=== PATIENT | male | born 1960 | race Caucasian/White ===

== ENCOUNTER 2016-07-15 10:34 | Emergency (ER) | payer MEDICAID ==
--- NOTE | 2016-07-15 10:57 | EDPHY ---
H & P Smoking Status: Never smoked Time Seen by Provider: 07/15/16 10:53 HPI/ROS: CHIEF COMPLAINT: Depression and suicidal ideation HISTORY OF PRESENT ILLNESS: History of bipolar, presents with ex-, suicidal ideation with worsening depression. Patient has a long history of depression and has had discussions with Dr. David Ribeiro about ECT if he does not get better. Worsening depression symptoms which are severe with a plan to put a plastic bag over his head or overdose on medications. Denies actual self-harm or overdose today. REVIEW OF SYSTEMS: Eye: no change in vision ENT: Recent hoarse voice. Cardiac: no chest pain or syncope Pulmonary: no cough or SOB Abdomen: no vomiting, diarrhea, abdominal pain Musculoskeletal: no back pain Skin: no rash Neuro: no headache Constitutional: no fever : no urinary symptoms A comprehensive 10 point review of systems is otherwise negative aside from elements mentioned in the history of present illness. PAST MEDICAL HISTORY: Bipolar disorder and severe depression Social history: No tobacco alcohol or drugs. General Appearance: Alert and conversant, cooperative. Eyes: No scleral icterus. ENT, Mouth: Normal mucous membranes. Respiratory: Normal respiratory effort, breath sounds equal, lungs are clear to auscultation. Cardiovascular: Regular rate and rhythm. Gastrointestinal: Abdomen is soft and non tender. Neurological: Alert and oriented x3. Normally conversant. Face symmetric, normal movement and sensation in all extremities. Skin: Warm and dry, no rashes. Musculoskeletal: No peripheral edema and no joint swelling. Psychiatric: Severe depression is noted in HPI with suicidal ideation and plan. Emergency Department course/MDM: Patient is placed on a mental health hold by myself at 11:00 a.m. for depression and increasing suicidal ideation with a plan. 1545: Signed out to Dr. Porras with psychiatric evaluation still in progress. ( Esau Porter) Constitutional: Initial Vital Signs Temperature (C) 36.4 C 07/15/16 10:50 Heart Rate 76 07/15/16 10:50 Respiratory Rate 16 07/15/16 10:50 Blood Pressure 133/79 H 07/15/16 10:50 O2 Sat (%) 95 07/15/16 10:50 O2 Delivery Mode Room Air Allergies/Adverse Reactions: No Known Allergies Allergy (Unverified 01/05/16 17:44) Home Medications: Medication Instructions Recorded QUEtiapine FUMARATE [Seroquel 50 100 mg PO HS 01/05/16 mg (*)] Sertraline HCl [Zoloft 100mg (*)] 100 mg PO DAILY 01/05/16 buPROPion XL [Wellbutrin Xl] 450 mg PO DAILY 01/05/16 clonazePAM [Klonopin (*)] 0.5 mg PO HS 01/05/16 Brexpiprazole [Rexulti 2 MG (*)] 2 mg PO DAILY 07/15/16 Medical Decision Making - Diagnostics EKG Interpretation: 12-lead EKG interpreted by me; official reading is in trace master. My interpretation is sinus rhythm, some rate 65, otherwise normal. (Esau Porter) ED Course/Re-evaluation: I assumed care of the patient at 4:00 p.m. pending psychiatric evaluation and placement. Update at 6:00 p.m.: I am informed that the psychiatric evaluation team is evaluating placement options. Update at 10:00 p.m. the patient has been accepted for psychiatric admission by Dr. Rg at [facility]. I have filled out the [facility] transfer form. (Alber Porras) Differential Diagnosis: Differential diagnosis considered for depression including functional and major depression, situational depression, medication side effect, drugs and alcohol abuse. (Esau Porter) - Data Points Laboratory Results: Laboratory Results 07/15/16 11:30 07/15/16 11:30 07/15/16 07/15/16 07/15/16 11:30 11:30 11:30 WBC 8.75 10^3/uL 10^3/uL (3.80-9.50) RBC 4.98 10^6/uL 10^6/uL (4.40-6.38) Hgb 15.5 g/dL g/dL (13.7-17.5) Hct 45.4 % % (40.0-51.0) MCV 91.2 fL fL (81.5-99.8) MCH 31.1 pg pg (27.9-34.1) MCHC 34.1 g/dL g/dL (32.4-36.7) RDW 13.3 % % (11.5-15.2) Plt Count 285 10^3/uL 10^3/uL (150-400) MPV 8.7 fL fL (8.7-11.7) Neut % (Auto) 73.1 % % (39.3-74.2) Lymph % (Auto) 16.6 % % (15.0-45.0) [place] % (Auto) 8.3 % % (4.5-13.0) Eos % (Auto) 0.9 % % (0.6-7.6) Baso % (Auto) 0.5 % % (0.3-1.7) Nucleat RBC Rel Count 0.0 % % (0.0-0.2) Absolute Neuts (auto) 6.40 10^3/uL 10^3/uL (1.70-6.50) Absolute Lymphs (auto) 1.45 10^3/uL 10^3/uL (1.00-3.00) Absolute Monos (auto) 0.73 10^3/uL 10^3/uL (0.30-0.80) Absolute Eos (auto) 0.08 10^3/uL 10^3/uL (0.03-0.40) Absolute Basos (auto) 0.04 10^3/uL 10^3/uL (0.02-0.10) Absolute Nucleated RBC 0.00 10^3/uL 10^3/uL (0-0.01) Immature Gran % 0.6 % % (0.0-1.1) Immature Gran # 0.05 10^3/uL 10^3/uL (0.00-0.10) Sodium 141 mEq/L mEq/L (134-144) Potassium 4.7 mEq/L mEq/L (3.5-5.2) Chloride 106 mEq/L mEq/L (97-110) Carbon Dioxide 26 mEq/l mEq/l (22-31) Anion Gap 9 mEq/L mEq/L (8-16) BUN 25 mg/dL H mg/dL (7-23) Creatinine 1.0 mg/dL mg/dL (0.7-1.3) Estimated GFR > 60 Glucose 107 mg/dL H mg/dL (70-100) Calcium 9.9 mg/dL mg/dL (8.5-10.4) TSH 1.670 uIU/mL uIU/mL (0.465-4.680) Salicylates < 1.0 mg/dL L mg/dL (2.0-20.0) Urine Opiates Screen NEGATIVE (NEGATIVE) Acetaminophen < 10 mcg/mL L mcg/mL (10.0-30.0) Urine Barbiturates NEGATIVE (NEGATIVE) Ur Phencyclidine Scrn NEGATIVE (NEGATIVE) Ur Amphetamine Screen NEGATIVE (NEGATIVE) U Benzodiazepines Scrn NEGATIVE (NEGATIVE) [place] < 0.2 mEq/L L mEq/L (0.6-1.2) Urine Cocaine Screen NEGATIVE (NEGATIVE) U Marijuana (THC) Screen NEGATIVE (NEGATIVE) Ethyl Alcohol < 10 mg/dL mg/dL (0-10) Departure - Departure Disposition: Other Psych, Not Pa Clinical Impression: Suicidal ideation, Severe major depression Condition: Fair Referrals: NONE *PRIMARY CARE P,. [Primary Care Provider] - As per Instructions
[2016-07-15 11:58] LABS: % IMMATURE GRANULYOCYTES 0.6 % (0.0-1.1); ABSOLUTE IMMATURE GRANULOCYTES 0.05 10^3/uL (0.00-0.10); ADD DIFF? NO; ADD MORPH? NO; ADD SCAN? NO; ATYPICAL LYMPHOCYTE FLAG 0 (0-99); FRAGMENT RBC FLAG 0 (0-99); HEMATOCRIT 45.4 % (40.0-51.0); HEMOGLOBIN 15.5 g/dL (13.7-17.5); LEFT SHIFT FLG 0 (0-99); LIPEMIA HEMOLYSIS FLAG 90 (0-99); MEAN CELL HEMOGLOBIN 31.1 pg (27.9-34.1); MEAN CELL HEMOGLOBIN CONCENTR. 34.1 g/dL (32.4-36.7); MEAN CELL VOLUME 91.2 fL (81.5-99.8); MEAN PLATELET VOLUME 8.7 fL (8.7-11.7); PLATELET CLUMPS FLAG 0 (0-99); PLATELET COUNT 285 10^3/uL (150-400); RED BLOOD CELL COUNT 4.98 10^6/uL (4.40-6.38); RED CELL DISTRIBUTION WIDTH 13.3 % (11.5-15.2)
--- NOTE | 2016-07-15 12:07 | CPEKG ---
Heart Rate: 65 RR Interval: 923 P-R Interval: 148 QRSD Interval: 102 QT Interval: 384 QTC Interval: 400 P [place]: 57 QRS [place]: 53 T Wave [place]: 41 EKG Severity - NORMAL ECG - EKG Impression: SINUS RHYTHM Electronically Signed By: Esau Porter 15-Jul-2016 12:13:58
[2016-07-15 12:22] LABS: ANION GAP 9 mEq/L (8-16); CALCIUM 9.9 mg/dL (8.5-10.4); CARBON DIOXIDE 26 mEq/l (22-31); CHLORIDE 106 mEq/L (97-110); ETHANOL SERUM < 10 mg/dL (0-10); GLOMERULAR FILTRATION RATE > 60; GLUCOSE 107 mg/dL (70-100); POTASSIUM 4.7 mEq/L (3.5-5.2); SALICYLATE < 1.0 mg/dL (2.0-20.0); SODIUM 141 mEq/L (134-144)
[2016-07-15 12:27] LABS: LITHIUM < 0.2 mEq/L (0.6-1.2)
[2016-07-15 21:58] VITALS: RESP 16; TEMP 97.9; O2SAT 96
[2016-07-15] MEDS ORDERED: QUEtiapine FUMARATE 50 MG TAB PO ONE (23:17)
[2016-07-15] MEDS ORDERED: clonazePAM 0.5 MG TAB PO ONE (23:17)
[2016-07-15] MEDS ORDERED: QUEtiapine FUMARATE 100 MG TAB ONE (23:23)
[2016-07-16] VITALS: BP 130/78; PULSE 56
== END 2016-07-15 23:45 ==
DX: R45.851 Suicidal ideations (principal); F32.9 Major depressive disorder, single episode, unspecified
CPT/HCPCS: 80305; G0480

== ENCOUNTER 2016-12-31 13:53 | Inpatient (IN) | payer MEDICAID ==
--- NOTE | 2016-01-16 10:17 | BGECT ---
[f rep st] OUTPATIENT ECT Amended report OUTPATIENT ELECTROCONVULSIVE THERAPY (ECT) EVALUATION DATE OF SERVICE: 01/15/[address] OF EVALUATION: [facility]. PRESENT FOR EVALUATION: The patient and his . TIME SPENT: 120 minutes. SOURCES OF INFORMATION: Clinical notes dated 12/24/[address] Lauro Fraga and ER evaluation from [facility] Emergency Department dated 01/05/2016. Personal interview and interview of patient's . CHIEF COMPLAINT: "I am no able to function". HISTORY OF PRESENT ILLNESS: The patient is a 55-year-old male with a history of treatment-resistant bipolar depression. He is referred by his outpatient psychiatrist, Dr. Lauro Fraga, due to lack of responsiveness to numerous medication interventions. He describes an almost life-long history of depressive symptoms, first beginning at age 11 to 13. At that time he states that he would feel sad and depressed most days and he can remember not understanding why. He states that he would cry frequently, especially at night and feel hopeless. He denies any specific losses or abuse or other factors contributing to this. He stated that he "just always felt sad". 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 He states that he was unhappy at his job and his partner at the time encouraged him to seek psychological help as she was a psychology clinical research director. He states that he did the psychotherapy for about 2 years and noted that he believes it was helpful. The patient first began medications about 20 years ago when he was given Prozac. He states that this was "quickly helpful within days". He states that his mood improved, though he felt accelerated and "buzzy". He then discontinued it and noted his mood to decline. He was then started on Paxil and noted again improvement and none of the over activation. He took this for about 2 years and then discontinued it due to the objection of his partner at that time who essentially did not believe in psychotropic medications. He states that his mood then declined significantly and he eventually went back on Paxil which he took consistently for 8 years. He states that this worked quite well but then quit working without other external factors and he stopped it. He states that he remained off medications for some time but got significantly worse and then saw a psychiatric nurse practitioner. He was then placed on several antidepressants including Celexa, Wellbutrin and Effexor which were ineffective. Seroquel, Abilify, Risperdal, trazodone and clonazepam were added without benefit. He was then tried on Zoloft again which was more helpful this time but precipitated a manic episode. He states that his sleep decreased and his mood became labile and erratic. He stated that he began to act "out of character" with impulsive spending and other behaviors. He begin starting home projects and not completing them and starting business ventures that were unsuccessful that he also did not finish. His states that he was more irritable and hostile, especially towards her and that this was a significant injury to their relationship. These symptoms merged when he restarted the Zoloft but also were coincident with his beginning marijuana use. He states that he was smoking on a daily basis at the time and did not believe it was related to his mood problems. He was eventually stared on [place] which he states was effective but caused him to feel blunted. He then had trials of Latuda in addition to the [place] and Abilify. The Zoloft was continued as he believes that has been the most beneficial medication for him over time. Recently Wellbutrin was added at 150 mg of the XL preparation and he states he has not noticed much benefit from that. He has taken Seroquel consistently over time for sleep at 100 mg and did have one brief trial of higher dose when he was working with the nurse practitioner, though he states he felt too sedated during the day. Recently Dr. Fraga engaged in trials of Latuda which was ineffective and he had several treatments with ketamine nasal spray over the last three weeks. The patient states that these definitely changed his feeling , stating at the time that he used it but it did not last. He states he typically took it at night and then slept well but in the morning felt depressed. He has recently changed to Rexulti and the Latuda was discontinued. The patient states that since October of this year his mood has been significantly worse and that he associates this in time with stopping Abilify and Alderton. His current symptoms of depression include depressed mood, poor energy and motivation, poor attention to concentration, inability to focus, some word- finding errors and other difficulties with recall including remembering how to perform work tasks that he is familiar with. He states that he has initial and middle insomnias and feels chronically tired. He reports anhedonia with lack of participation in most activities. He states he usually likes to snowboard with his children and enjoys rock climbing, going to the gym. He states that recently he has not done these activities and even drove to the gym and sat in the parking lot but did not go in. He states that his motivation and volition are poor and that he feels "aimless". He states that he has been very indecisive and often will sit in his car for hours trying to decide what he needs to do. He feels helpless and hopeless and has had increasingly frequent impressing thoughts of suicide. He has not had a suicide attempt but has had suicidal thoughts "off and on for years". He states that these have been increased since October of this year and that "it definitely seems like more of an option now". He states that he has got as far as researching methods of suicide on the internet and this is concerning to him. He stated that he has not done this recently because he has lacked the motivation to get onto the computer and has not checked email or voice mail for several weeks. He states overall he has been avoiding most activities and has been withdrawing. His appetite is poor and he believes he may have lost some weight, though is unsure. He also is eating poorly due to lack of any motivation to cook. PAST PSYCHIATRIC HISTORY: As above. The patient has had no previous psychiatric hospitalizations. No previous suicide attempts and has not had previous trials of ECT or TMS. ALLERGIES NO KNOWN MEDICAL ALLERGIES. CURRENT MEDICATIONS: Wellbutrin XL 150 mg daily. Zoloft 50 mg daily. Rexulti at 1 mg daily. Klonopin 1 mg HS and Seroquel 100 mg HS. PAST MEDICAL HISTORY: Significant for two knee surgeries, one of which he received general anesthesia for. He also had wisdom teeth out as a child. He notes no problems with anesthesia or any family history of problems with anesthesia. SOCIAL HISTORY: The patient was born and raised in [facility]. He has one brother who is 3 years younger. He states that his father was a reyes and his mother mostly stayed home. He states that his parents were "baptist zealots" and that they attended a fundamental Mu-Ism scientologist. He states that his mother was particularly devout and that this was a difficult aspect of his upbringing as he himself participated but did not internalize any of the baptist training. He states he was a practicing Jehovah'S Witness, though over recent months has been having severe difficulty concentrating or meditating. 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 He states that he did not like this due to disliking "the corporate world". 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 Eventually he went back to school earning a Masters degree in psychology at [employer]. 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 He state he has not been able to work recently and has not even been going to the office or checking messages. He has been twice, the first for 7 years. This union produced no children. He is still close friends with his first however. His second marriage is for 11 years and he has 8-year-old twins. He states that these are "my whole reason for living". He states he is very close to his children but has struggled to care for them recently. He has been from his for the past year and today had a hearing to finalize their separation. He states that he was unable to process much of what the network design architect was telling him and that the network design architect instructed him to go get banking paralegal because he did not seem clear about the process. He is currently living in the family's home with 3 housemates he recruited to help share the mortgage. His and children are living in a separate home that she purchased. The patient states he has significant financial stress in paying his mortgage as he has not been working and the roommates who are helping pay are all leaving by the end of this month. He states that his has her own income and is able to support herself and the children. The patient notes not other stressors at this time. When asked about supports, he states that he is so close to his first and his current and they are both supportive of him and actually are friends. He states he has a few friends whom he talks to occasionally but nobody he feels close to. SUBSTANCE ABUSE HISTORY: The patient has used marijuana for the past 2 to 3 years. He used heavily at the beginning but now states he only uses intermittently. He has no history of alcohol use or other drugs. FAMILY HISTORY: The patient has a brother with depression who takes some SSRI. He states that his mother is likely bipolar and may have a borderline personality in his opinion. His father is likely depressed in his opinion and takes Prozac. LABORATORY: Laboratories drawn when the patient was in the emergency department on 01/05/2016. CBC is normal. Serum chemistries are normal except a non-fasting glucose of 123. Urine drug screen is negative for all substances and alcohol was less than detectable. MENTAL STATUS EXAM: Reveals thin, though healthy-appearing male. He exhibits marked psychomotor retardation that is apparent immediately. He sits in a fairly slouched manner with his head held down and his eyes downcast, though he does interact appropriately with the examiner. His speech is slow, though fluent. There is no delay in response. His affect is blunted, dysphoric, stable and appropriate. His mood was described as "depressed". His thought process is linear and goal directed. This thought content reveals no evidence of psychosis. He is alert and oriented to person, place, time and situation and his sensorium is clear. He continues to discuss his thoughts of suicide and states that these have increased and they are frequently on his mind and that he is concerned about them. He denies any current intention or plan to harm himself. He is alert and oriented to person, place, time and situation and his sensorium is clear. His intellect appears to be above average as evidenced by his educational and occupational history, his fund of knowledge and vocabulary. His insight and judgment appear to be good. IMPRESSION: Nedrow I: Bipolar 1 disorder, most recent episode depressed, severe , without psychosis. Treatment resistant in nature. Cannabis use disorder mild. Nedrow II: No diagnosis. Nedrow III: No acute illness. Nedrow IV: Marital separation and conflict. Financial problems. Employment problems. Nedrow V: Currently 36. The patient is a 55-year-old male with a history of treatment- resistant bipolar depression. His manic episode was coincident with the cannabis use as well as restarting an antidepressant, so it is somewhat difficult to say for sure, but he has other patterns in his life where it does appear likely he has a bipolar illness. Regardless, he has clear mood- resistant mood problems. I believe that he is a good candidate for ECT for this reason and because of the severity of his current episode and prominence of his suicidality. He has failed 3 or more adequate trials of antidepressants , mood stabilizers and neuroleptics. He has occurrence of prolonged subtherapeutic response to an adequate dose of antidepressants as well. He is a high suicide risk demographically, has prominent neurovegetative symptoms. He has no primary personality disorder, no contraindicating medical issues. I discussed with the patient that his main alternative to ECT at this time would be continued medication management. Overall given the patient's current severity of symptoms and previous treatment response, I have indicated a 15 to 18% chance of reaching remission with further medication trials. I have also indicated a 55 to 60% chance of reaching remission with ECT. I spent time discussing the course of ECT with the patient and his and they understand that acute course treatments will occur here at [facility] on a Tuesday, Tuesday, Tuesday basis. They also understand that these will be in the range of 8 to 15 total treatments and that he will require maintenance treatments following this. I have indicated to them that these would be no less than 4 given on a week interval and that should they not participate in maintenance therapy following even a successful acute course of ECT, he would expose himself to an increased risk of relapse of 85%. The patient voices understanding that there is no guarantee that the ECT will be effective. He does comment that he was hoping for better odds of recovery than 55 to 60%. I discussed with the patient the likelihood of extremely rare, rare and uncommon side effects with ECT including major risks such as occurring in 1:10,000 and severe risks in the cardiovascular and central nervous systems that are possible. The side effects of ECT such as nausea, headaches and agitation were also discussed. Particular time was spent discussing transient and persistent cognitive side effects of ECT. Side effects such as antegrade, retrograde and autobiographical memory deficiencies were discussed. I also reviewed with him the influence of ECT on working memory and the fact that he already has significant working-memory dysfunction. I reviewed deficiencies in recall and in cataloging permanent memories during acute course ECT. The patient understands the behavioral restrictions that are requisite with ECT including n.p.o. requirements and timeframes, 24 hour monitoring on treatment days, no driving during the acute phase of treatment or on any treatment day and medication adjustments that may occur before treatment and afterwards. The patient is given a packet of ECT educational materials and instructed to call with any questions. The patient and his were given my card with my personal voice mail and personal email on them. They were instructed to call with any questions. They were also given a list of ECT staff and informed that they will be contacted by Conchita Serrato for followup and to help make logistical plans. I again believe that he will be a good candidate for ECT and have offered him the opportunity to begin as soon as possible. He states that he will further review the educational materials, discuss the process with his , investigate supports and discuss the logistical issues with Conchita prior to deciding. /[id number]/MODL Add acc#, 12/31/16, jessica VALLADARES
--- NOTE | 2016-12-11 09:13 | BGECT ---
[f rep st] OUTPATIENT ECT Amended report UPDATED OUTPATIENT ECT EVALUATION DATE OF SERVICE: 12/10/2016 LOCATION: [facility]. TIME SPENT: 90 minutes. SOURCES OF INFORMATION: Interview with the patient, phone call discussion of case with Dr. Henriquez. Review of recent labs. CHIEF COMPLAINT: "My depression will not go away. I feel like I just have to do ECT." HISTORY OF PRESENT ILLNESS: Patient is a 56-year-old, male with a history of treatment-resistant bipolar depression. A full clinical history can be found in his ECT evaluation dated 01/15/2016. This dictation will supplement that with the interval data and current evaluation. The patient is seen today, again on referral from his outpatient psychiatrist, Dr. Henriquez, and at his request for review and a 2nd opinion in regard to his appropriateness at this time for ECT. He presented last January with a clear history of treatment-resistant depression and what I felt would be a good ECT case, given the chronicity and severity of his depression, and the treatment resistant nature. At that time, I offered to begin ECT with him, and went through the risks, benefits and alternatives. He was hesitant, stating that he was unsure if he could stop his work, he was not sure if he had the right supports or transportation, and began a series of communications with Conchita Fuentes, our clinical coordinator. This continued for several months off and on, during which he would decide he did not want to do it, and then decide he did want to do it and move forward with the process. Approximately 1 month ago, however, he states that his mood declined more severely and that he "came to the realization that I will never get better and truly be well unless I try ECT. " I discussed with him that there is no guarantee that ECT will help him, but with his history of medication intolerance and/or ineffectiveness, it would offer him a viable treatment option. He reports his mood remaining depressed over the 11 months since I saw him last. He states that it was "very, very low " in September through October, which he states is common for him. He also experiences "crashes" between [employer] and [facility]. 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 He has taken in 2 roommates who help him and will serve as his primary support should he begin ECT. He states that he has felt an actual "mild up period" over the past 2 weeks, which he states is very common for him in the hot part of summer. He states, however, that this is typically the harbinger to the crashes in the fall, and "never lasts." He describes current or recent stressors of his divorce being finalized in July , and worry over his 's new boyfriend and his influence over the children. He states that he does not like this man and feels like he is a bad influence. The patient has joint custody but the kids primarily live with their mother. The patient states currently that his mood is depressed on a daily basis, that his energy and motivation are poor, his attention and concentration are marginal. He is anhedonic and struggles to be active in his work and his children's lives. He states that he believes this is not sustainable and fears that he will return to his completely debilitated state that he exhibited last year. Multiple medication trials including increasing Zoloft, adding Rexulti and Vraylar as well as reintroducing lithium have been ineffective. PAST PSYCHIATRIC HISTORY: The patient continues to see Dr. Hector Henriquez for medication management. His full past medication history and past psychiatric treatment history can be found in the evaluation of January 2016. ALLERGIES: No known medical allergies. CURRENT MEDICATIONS: Wellbutrin XL 150 mg daily, Zoloft 100 mg daily, clonazepam 0.5 mg at bedtime, and Seroquel 100 mg at bedtime. PAST MEDICAL HISTORY: Significant for 2 previous knee surgeries, one of which he received general anesthesia for. He also had wisdom teeth out remotely. He has had no complications from anesthesia or family history of problems with anesthesia. SOCIAL HISTORY: Patient was born and raised in [facility] [facility]. He has a distant relationship with his family due to baptism beliefs on their part. 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 He also has a Master's degree in psychology from [employer]. He has 2 twin 9-year-old children, and has joint custody of them. He recently finalized the divorce. He lives in a house that he owns with 2 roommates. A full social history can be found in January 2016 dictation. SUBSTANCE ABUSE HISTORY: Patient states that he is not currently using substances. FAMILY HISTORY: The patient has a brother with depression, and his mother may have had bipolar disorder or borderline personality disorder. The patient stated his father is also likely depressed. LABS: Dated 07/15/2016 show normal CBC and serum chemistries with a BUN up at 25, though creatinine normal 1.0, nonfasting glucose is up at 107, TSH was normal at 1.67. H and P done 07/15/2016 showed no significant abnormalities. EKG performed 07/15/2016 was normal with a QTc of 400 and no abnormalities. MENTAL STATUS EXAMINATION: Reveals a healthy-appearing, adequately groomed male. He interacts well with the examiner, though does display some continued psychomotor retardation. He sits with a fairly closed body posture, making intermittent eye contact. His speech is somewhat slowed, low in tone, though normal in flow. His affect is blunted, dysphoric, stable and appropriate. His mood is described as "very depressed." His thought process is linear and goal directed. There is no evidence of blocking or delay. His thought content reveals no evidence of psychosis. He is alert and oriented to person, place, time, and situation, and his sensorium is clear. His general cognition appears to be normal. He states that he continues to have thoughts of suicide and that these are worse during his "crashes," and he is concerned that this will become a pressing issue soon if they intensify any further. He states he does not currently have any intent or plan. His intellect appears to be above average, as evidenced by his educational and occupational histories, fund of knowledge, and vocabulary. His insight and judgment appear to be good. IMPRESSION: Bipolar 1 disorder, most recent episode depressed, possibly becoming mixed, severe without psychosis. Treatment resistant features. Cannabis use disorder, currently inactive. Past knee surgeries. Recent divorce , possible parenting conflicts. Financial problems, business employment problems, marginal supports. The patient is a pleasant 56-year-old, male who presents at this time for reconsideration of ECT treatment. I believe that he remains a good candidate due to the chronicity and severity of his illness and its treatment- resistant nature. He is referred again by Dr. Henriquez, who also believes he is a good candidate. The patient is currently motivated and appears to understand the risks, benefits, and alternatives; and is able to provide informed consent. I did review again with him the aspects of informed consent including the risks involving the treatment itself, its effects on memory, the functional deficits that can occur. He is again given educational materials and instructed to call if he has any further questions. We will send this information to Medicaid for prior authorization, and hope to begin as soon as possible. /[id number]/MODL and [id number]/MODL. Add acc#, 12/31/16, jessica VALLADARES
--- NOTE | 2016-12-31 14:32 | EDPHY ---
H & P Stated Complaint: SI - Personal History Current Tetanus/Diphtheria Vaccine: Yes - Medical/Surgical History Hx Asthma: No Hx Chronic Respiratory Disease: No Hx Diabetes: No Hx Cardiac Disease: No Hx Renal Disease: No Hx Cirrhosis: No Hx Alcoholism: No Hx HIV/AIDS: No Hx Splenectomy or Spleen Trauma: No Other PMH: depression/HYPOTHYROID. bipolar - Social History Smoking Status: Never smoked Time Seen by Provider: 12/31/16 14:20 HPI/ROS: CHIEF COMPLAINT: Depression HISTORY OF PRESENT ILLNESS: 56-year-old male history of bipolar depression in the emergency department with his therapist for evaluation for likely admission to [address] for ECT. He reports progressive, worsening anxiety and depression to the point worse therapist at go to his house today. Denies suicidal or homicidal ideation. Has failed other modalities of treatment. No hallucination. No drug or alcohol use. REVIEW OF SYSTEMS: A ten point review of systems was performed and is negative with the exception of the items mentioned in the HPI PAST MEDICAL & SURGICAL HISTORY: Bipolar depression SOCIAL HISTORY: no alcohol no drugs PHYSICAL EXAM (Prior to examination, patient consented to physical exam, hands were washed and my usual and customary physical exam procedures followed) 1) GENERAL: Well-developed, well-nourished, alert and oriented. Appears depressed . 2) HEAD: Normocephalic 3) HEENT: Sclera anicteric. 4) NECK: Full range of motion, no meningeal signs. 5) LUNGS: breathing comfortably clear bilaterally . 6) HEART: Regular rate and rhythm, no murmur, no heave, no gallop. 7) ABDOMEN: No guarding, no rebound, no focal tenderness, 8) MUSCULOSKELETAL: signs of trauma No peripheral edema or discoloration. 9) BACK: no visual or palpable abnormality. 10) SKIN: No rash, no petechiae. 11) Psychiatric: Patient is oriented X 3, depressed, flat affect DIFFERENTIAL DIAGNOSIS: in no particular include but limited to depression, suicidal ideation, homicidal ideation, psychosis (Ilir,Joann Cristina) Constitutional: Initial Vital Signs Temperature (C) 36.8 C 12/31/16 13:55 Heart Rate 66 12/31/16 13:55 Respiratory Rate 20 12/31/16 13:55 Blood Pressure 128/79 H 12/31/16 13:55 O2 Sat (%) 96 12/31/16 13:55 O2 Delivery Mode Room Air Allergies/Adverse Reactions: No Known Allergies Allergy (Unverified 01/05/16 17:44) Home Medications: Medication Instructions Recorded QUEtiapine FUMARATE [Seroquel 50 100 mg PO HS 01/05/16 mg (*)] Sertraline HCl [Zoloft 100mg (*)] 100 mg PO DAILY 01/05/16 buPROPion XL [Wellbutrin Xl] 450 mg PO DAILY 01/05/16 clonazePAM [Klonopin (*)] 0.5 mg PO HS 01/05/16 Cariprazine HCl [Vraylar] 3 mg PO 12/31/16 clonazePAM [Clonazepam] 0.5 mg PO 12/31/16 Medical Decision Making ED Course/Re-evaluation: 2:30 p.m.: I have spoke with Ishaan with mental health services and he request the usual medical screening laboratory studies and contact [facility] who will coordinate with [address] for likely admission and ECT. 5:00 p.m.: Care turned over to Dr. Esau Porter (Joann Hazel) Other Provider: PHYSICIAN DOCUMENTATION: The patient was evaluated and managed by the Phys[facility] Director and myself. I have reviewed the chart and agree with the findings and plan of care as documented. In addition, I examined the patient myself at 1510. History confirmed as worsening depression, never had ECT before, bipolar 1 disorder diagnosed. Physical findings as follows: Alert, anxious, tearful, depressed. Signed out to Dr. Chance at 2200 with plan for probable inpatient placement at [place] for ECT. I am the secondary supervising physician. (sEau Porter) - Data Points Laboratory Results: Laboratory Results 12/31/16 14:45 12/31/16 14:45 12/31/16 12/31/16 12/31/16 15:36 14:45 14:45 WBC 8.76 10^3/uL 10^3/uL (3.80-9.50) RBC 5.28 10^6/uL 10^6/uL (4.40-6.38) Hgb 16.1 g/dL g/dL (13.7-17.5) Hct 45.9 % % (40.0-51.0) MCV 86.9 fL fL (81.5-99.8) MCH 30.5 pg pg (27.9-34.1) MCHC 35.1 g/dL g/dL (32.4-36.7) RDW 12.9 % % (11.5-15.2) Plt Count 283 10^3/uL 10^3/uL (150-400) MPV 8.3 fL L fL (8.7-11.7) Neut % (Auto) 64.2 % % (39.3-74.2) Lymph % (Auto) 22.4 % % (15.0-45.0) [place] % (Auto) 10.3 % % (4.5-13.0) Eos % (Auto) 1.3 % % (0.6-7.6) Baso % (Auto) 0.8 % % (0.3-1.7) Nucleat RBC Rel Count 0.0 % % (0.0-0.2) Absolute Neuts (auto) 5.63 10^3/uL 10^3/uL (1.70-6.50) Absolute Lymphs (auto) 1.96 10^3/uL 10^3/uL (1.00-3.00) Absolute Monos (auto) 0.90 10^3/uL H 10^3/uL (0.30-0.80) Absolute Eos (auto) 0.11 10^3/uL 10^3/uL (0.03-0.40) Absolute Basos (auto) 0.07 10^3/uL 10^3/uL (0.02-0.10) Absolute Nucleated RBC 0.00 10^3/uL 10^3/uL (0-0.01) Immature Gran % 1.0 % % (0.0-1.1) Immature Gran # 0.09 10^3/uL 10^3/uL (0.00-0.10) Sodium 140 mEq/L mEq/L (134-144) Potassium 4.2 mEq/L mEq/L (3.5-5.2) Chloride 107 mEq/L mEq/L (97-110) Carbon Dioxide 19 mEq/l L mEq/l (22-31) Anion Gap 14 mEq/L mEq/L (8-16) BUN 27 mg/dL H mg/dL (7-23) Creatinine 1.0 mg/dL mg/dL (0.7-1.3) Estimated GFR > 60 Glucose 88 mg/dL mg/dL (70-100) Calcium 10.2 mg/dL mg/dL (8.5-10.4) Salicylates < 1.0 mg/dL L mg/dL (2.0-20.0) Urine Opiates Screen NEGATIVE (NEGATIVE) Acetaminophen < 10 mcg/mL L mcg/mL (10-30) Urine Barbiturates NEGATIVE (NEGATIVE) Ur Phencyclidine Scrn NEGATIVE (NEGATIVE) Ur Amphetamine Screen NEGATIVE (NEGATIVE) U Benzodiazepines Scrn NON-NEGATIVE H (NEGATIVE) Urine Cocaine Screen NEGATIVE (NEGATIVE) U Marijuana (THC) Screen NEGATIVE (NEGATIVE) Ethyl Alcohol < 10 mg/dL mg/dL (0-10) Departure - Departure Disposition: [facility] IP Clinical Impression: Severe major depression, Bipolar 1 disorder, depressed, severe Condition: Fair
[2016-12-31 14:54] LABS: ABSOLUTE IMMATURE GRANULOCYTES 0.09 10^3/uL (0.00-0.10); ADD DIFF? NO; ADD MORPH? NO; ADD SCAN? NO; ATYPICAL LYMPHOCYTE FLAG 0 (0-99); FRAGMENT RBC FLAG 0 (0-99); HEMATOCRIT 45.9 % (40.0-51.0); HEMOGLOBIN 16.1 g/dL (13.7-17.5); LEFT SHIFT FLG 0 (0-99); LIPEMIA HEMOLYSIS FLAG 90 (0-99); MEAN CELL HEMOGLOBIN 30.5 pg (27.9-34.1); MEAN CELL HEMOGLOBIN CONCENTR. 35.1 g/dL (32.4-36.7); MEAN CELL VOLUME 86.9 fL (81.5-99.8); MEAN PLATELET VOLUME 8.3 fL (8.7-11.7); PLATELET CLUMPS FLAG 0 (0-99); PLATELET COUNT 283 10^3/uL (150-400); RED BLOOD CELL COUNT 5.28 10^6/uL (4.40-6.38); RED CELL DISTRIBUTION WIDTH 12.9 % (11.5-15.2)
[2016-12-31 15:06] LABS: ANION GAP 14 mEq/L (8-16); CALCIUM 10.2 mg/dL (8.5-10.4); CARBON DIOXIDE 19 mEq/l (22-31); CHLORIDE 107 mEq/L (97-110); ETHANOL SERUM < 10 mg/dL (0-10); GLOMERULAR FILTRATION RATE > 60; GLUCOSE 88 mg/dL (70-100); POTASSIUM 4.2 mEq/L (3.5-5.2); SALICYLATE < 1.0 mg/dL (2.0-20.0); SODIUM 140 mEq/L (134-144)
[2017-01-01] MEDS ORDERED: MAG HYDROX/AL HYDROX/SIMETH 30 ML UDCUP PO PRN (01:44)
[2017-01-01] MEDS ORDERED: LORazepam 0.5 MG TAB PO PRN (01:44)
[2017-01-01] MEDS ORDERED: NICOTINE POLACRILEX 2 MG GUM B PRN (01:44)
[2017-01-01] MEDS ORDERED: MAGNESIUM HYDROXIDE 30 ML UDCUP PO PRN (01:44)
[2017-01-01] MEDS ORDERED: QUEtiapine FUMARATE 50 MG TAB PO PRN (01:45)
[2017-01-01] MEDS ORDERED: OLANZapine 5 MG TAB PO PRN (01:46)
[2017-01-01] MEDS ORDERED: clonazePAM 0.5 MG TAB PO PRN (01:46)
--- NOTE | 2017-01-01 09:33 | GHP ---
[f rep st] HISTORY AND PHYSICAL DATE OF ADMISSION: 01/01/2017 CHIEF COMPLAINT: Depression and increasing anxiety. HISTORY OF PRESENT ILLNESS: This is a 56-year-old male with a long history of depression and a 3-ye ar history of a diagnosis of bipolar disorder who presents with increasing depression and anxiety. He was admitted to an inpatient psychiatric facility in July of 2016 but has been experiencing incr easing anxiety and depression in the last month. He is followed closely by Psychiatry and has been brought in for consideration of ECT treatment due to the refractory nature of his depression. Medically, he describes himself as medically healthy at this time. There has been no recent fever, chills, sweats, cough, shortness of breath. No complaints of chest pain, shortness of breath, abdom inal pain, nausea, vomiting, dysuria, or joint or skin disorder. There is a note in his chart that he has a hypothyroid state, but he denies this and says that he is not taking thyroid medication. N ote also that his TSH on this admission is normal at 1.67. PAST MEDICAL HISTORY: Denies asthma, allergies, high blood pressure, diabetes, or renal problems. PAST SURGICAL HISTORY: Knee surgery x2 with general anesthesia without complications. REVIEW OF SYSTEMS: A 10-point review of systems is completely negative. ALLERGIES: None. MEDICATIONS: Listed in the EMR and have been usually doses of clonazepam, bupropion, Zoloft, Seroqu el, and cariprazine. The dosages are noted in the EMR. FAMILY HISTORY: He has a brother who suffers from depression. His mother may have had bipolar diso rder. His father probably also had depression. SOCIAL HISTORY: He has a Bachelor of Science in electrical engineering from [employer]. M nani out here after his bachelor's degree for a job. He is currently , and that divorce occ urred recently in July of 2016. He has a boy and a girl, both 9 years old, with the mother having p rimary custody. He lives in a house which he owns and rents out rooms. 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 He is currently the only employee of [employer]. He has never smoked cigarettes. Medications include intermittent use of cannabis for hi s anxiety and to help him sleep. He has not used it recently, and it has never been an abuse. He h as never used IV drugs and denies a history of hepatitis, jaundice, or HIV infection. ELECTROCARDIOGRAM: ECG in the past has been entirely normal. The most recent one was in July and shows a normal QTc interval. PHYSICAL EXAM: GENERAL: This is a pleasant, cooperative, but tearful gentleman who I am seeing on the psychiatric unit. VITAL SIGNS: His vital signs are normal. HEENT: He has very mild tendernes s at the left TMJ joint without inflammation. The pinna of the left ear is normal. The external ca nal appears normal. Throat is benign. Tongue and buccal mucosa are without lesions. CHEST: Chest wall is nontender to palpation. LUNGS: Clear to P and A. HEART: Singular S1 and S2. No murmur, gallop, or rub. ABDOMEN: Thin. Normoactive bowel sounds. No masses, tenderness, or organomegaly. SKIN: No signs of a rash. JOINTS: Noninflamed and nontender. NEUROLOGIC: An oriented x3, tear ful gentleman. Cranial nerves 2-12 intact to specific testing. Motor and sensory function intact. LABORATORY: CBC is entirely normal. Chemistry panel shows a very mild dehydration with the BUN esther vated at 27 with normal creatinine level. TSH is normal at 1.6. Toxicology is negative for salicyl ates, alcohol, acetaminophen, and lithium. It is not negative for benzodiazepines, yet that is prob ably from prescriptions. ASSESSMENT: 1. Severe depression with increasing anxiety and ongoing worsening of an underlying bipolar and dep ressive disorder. 2. Euthyroid state with a normal TSH. The patient denies a history of hypothyroidism and has never taken thyroid medication. This diagnosis of hypothyroidism in his prior EMR should be corrected. 3. The patient has medical clearance for psychiatric evaluation and for ECT care. I will order a 2 nd ECG just to confirm, yet his prior ECG showed a normal QT interval. /[id number]/MODL
--- NOTE | 2017-01-01 13:44 | BAPA ---
[f rep st] ADMISSION PSYCHIATRIC ASSESSMENT DATE OF SERVICE: 01/01/2017 CHIEF COMPLAINT: "My mood cycled down pretty abruptly on Tuesday. I really can't put it on anything ." HISTORY OF PRESENT ILLNESS: This is a 56-year-old, , man who voluntarily came to [facility] ED at the request of his therapist due to increased depression and SI since Tuesday. The patient was placed on an M1 hold by [facility] which said that the patient presents depressed, suicidal thoughts. Yesterday med with his counselor, who encouraged him to for ego custody of his daughter's which he found triggering. He has a history of suicide attempts follo wing marital issues, severe anxiety, fear to be alone, thinks he might hurt himself. He is feeling hopeless. He denies hallucinations and delusions. The patient states that he has rehearsed suicide attempt by overdose and suffocation. He placed a plastic bag over his head and took an overdose of ketamine in June. The patient was admitted to [facility] C[facility]. Patient jannette uated in the ED " I continued to get worse all week and I was strongly encouraged to come up my ther apist." He says that he has had increased thoughts of SI since Tuesday. When this MD met with the jose acuna on 01/01/2017, he was very tearful, sad. He says that he has felt "worn down" recently becau se he says he has been "working a lot." He also says that he feels very emotional because "I miss m y ex a lot." He says that he has had several triggering events this week. He said that he spo ke with his on the phone several times over the last week and they have had arguments. His wif e is dating someone else and the patient does not think that his 's new boyfriend is "good for o ur kids." When the patient raised that, the threatened to take legal action to take custody of their children away from him. He said this was very upsetting. He talked to his , and asked i f they could see a marriage counselor and discuss the issues without going to court and she did even tually agree to that. The patient says that that has been 1 of the things that has caused him to sp iral downward, and he does not feel like he is getting any better so he scheduled an appointment on 12/27/[address] Ribeiro, who has evaluated him in the past for ECT. When patient saw Dr. Lizzie boyd he said that he was at such a low point that he decided that he should do the ECT as soon as pos sible, but he still feels fairly ambivalent about it. He says "I am very scared." PAST PSYCHIATRIC HISTORY,: Patient has been seeing Lauro Henriquez in [place] for approximately the last 2-3 years. He has been on the same medication regimen during that time. He says that he has b een under the care of a psychiatrist and on- and off medications for approximately 15-20 years. He saw a nurse practitioner before he saw Dr. Henriquez. He has been seeing Karma Das in [place] for therapy for about the same amount of time as he has been seeing Dr. Henriquez. He has no psychiatri c inpatient hospitalizations, but he was admitted to the [facility] in late 2016 after he made an attempt to kill himself by suffocation by putting a bag over his head and by taking an overdose of ketamine. That was the only time the patient has never attempted suici de and the only time that he has ever been in a locked facility. He has never had ECT although he h as been evaluated for it on at least 2 separate occasions, but says that he has always put off doing it because it "scares him." ALLERGIES: Patient denies any drug allergies. CURRENT MEDICATIONS: Include Wellbutrin XL 150 mg p.o. daily, Zoloft 100 mg p.o. daily, vitamin D h e said he takes 5000 units, but not regularly. He says he will take it a couple times a week. He h as also been taking Klonopin 0.5 mg p.o. at bedtime p.r.n. for sleep as well as Seroquel 50 mg p.o. at bedtime for sleep and recently, Dr. Ribeiro gave him a prescription for Xanax p.r.n. and he has o nly used a few tablets over the last few days. PAST MEDICAL HISTORY: The patient says that he has no medical issues. He denies ever having a seiz ure, never had a head injury. SURGERIES: He has had 2 knee surgeries, the last 1 was in the late 1990s. SOCIAL HISTORY: Patient is , has 2 twin daughters, age 99 years old. He currently lives wit h roommates in the [facility]. He stated he does not have a lot of contact with his roommate s. They are not very supportive. 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 He has a small group of friends. 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 He denies any le gal problems. His educational level is he has a master's degree. The patient says he likes to hike . He used to enjoy rock climbing. He says he does not do nearly as many activities now as he used to do because of his depression. SUBSTANCE USE HISTORY: 1st use of alcohol was at age 20. He drinks 1 drink "a couple times a month ." He says his last use of alcohol was "a couple weeks ago." He started using marijuana when he wa s 51 years old. He both eats and smokes at least once a week, but he says his last use was "a coupl e weeks ago." He denies any other recreational drugs. FAMILY HISTORY: Patient says that he thinks his mother may have borderline personality disorder, bu t she has never been diagnosed or treated. He denies any other history of mental illness or substan ce use disorder within his family. ADMISSION LABS: White cell count is 8.76, hemoglobin 16.1, hematocrit 45.9, platelet count is 283. Sodium is 140, potassium 4.2, chloride 107, BUN is 27, creatinine is 1.0. Glucose is 88, calcium i s 10.2. Salicylates and acetaminophen were both undetected. Urine drug screen is positive for andrea os. Blood alcohol level is undetected. MENTAL STATUS EXAMINATION: This is a tall, thin, well developed, appropriately groomed man. He is wearing a fleece machine puller and jeans. He is tearful throughout the interview, but otherwise appropr iate eye contact. Interacts well with the examiner. He is pleasant and cooperative. His affect is sad and tearful. He describes his mood as "depressed." His thought process is linear and goal dir ected. His thought content reveals no evidence of psychosis. No signs or symptoms of barb. He do es report feeling depressed and sad, but he denies any thoughts, plans or intents to hurt himself. He is alert and oriented x4. His intellect is average based on education, occupational history, his fund of knowledge and vocabulary. His insight and judgment are both fair. DIAGNOSES: 1. Major depressive disorder, recurrent, severe. 2. 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 PLAN: 1. Admit patient to behavioral behavior health services inpatient unit on an M1 hold. 2. Monitor closely for safety. The patient is able to contract for safety. He does not endorse an y thoughts, plans or intents to hurt himself. 3. We will resume the patient's course of outpatient medications although some of his medications w ill need to be held prior to him receiving ECT. 4. The patient is scheduled to have ECT starting on 01/03/2017, although he is somewhat ner vous about that plan, but he recognizes that it gives him hope that it will be effective and that he will get better. 5. Patient will engage in individual, group, and milieu therapies. 6. Estimated length of stay is 3-5 days. /[id number]/MODL
[2017-01-01] MEDS: SERTRALINE HCL 100 MG TAB PO SCH (14:05)
[2017-01-01] MEDS: buPROPion XL 150 MG TAB PO SCH (14:05)
[2017-01-01] MEDS: LORazepam 0.5 MG TAB PO PRN (16:16)
[2017-01-01] MEDS: clonazePAM 0.5 MG TAB PO PRN (20:56)
[2017-01-02] MEDS: SERTRALINE HCL 100 MG TAB PO SCH (09:25)
[2017-01-02] MEDS: CHOLECALCIFEROL VIT D3 2,000 UNITS TAB/CAP PO SCH (09:25)
[2017-01-02] MEDS: buPROPion XL 150 MG TAB PO SCH (09:25)
--- NOTE | 2017-01-02 12:45 | SOAPPROG ---
NICKY Progress Note Assessment/Plan: Assessment: 01/02/17 12:41 Plan: 1. Continue on current outpatient med regimen. 2. Start ECT on 01/03/17 3. M1 expires on 01/03/17, patient agrees to sign in voluntary. Subjective: Met with patient and discussed with staff. Patient is less tearful and has slightly brighter affect today. He admits he feels "less emotional" and has not cried since yesterday. His outpatient therapist came to visit him last night, and he says that "helped a lot." He says he is feeling "less helpless" and more hopeful. He is still "nervous and scared" about starting ECT because he says, " I just don't know what to expect." He says he slept "very hard" last night and thinks that the combination of a good talk with his therapist and getting "back on my home meds" benefited him. He denies any thoughts about suicide today and is trying to just take things "one day at a time" and focus on the present. MD encouraged him to keep doing this. Objective: Vital Signs Temp Pulse Resp BP Pulse Ox 36.8 C 66 14 114/68 97 01/02/17 06:31 01/02/17 06:31 01/02/17 06:31 01/02/17 06:31 01/02/17 06:31 MSE: Wearing fleece pullover and jeans. Affect: Euthymic, brighter than yesterday, not tearful and occasional smile Mood: "Better" TP: Linear, goal- directed TC: Denies any AH/VH, no paranoia, no delusions, no SI/HI Insight/ Judgment: Fair - Time Spent With Patient Time Spent With Patient: 20" - Pending Discharge Pending Discharge Within 24 Hours: No ICD10 Worksheet Patient Problems: Problems Problem Status Onset Depression, major, severe recurrence Acute Severe major depression Acute - ICD10 Problem Qualifiers (1) Depression, major, severe recurrence Qualifiers: Psychotic features: without psychotic features Qualified Code(s): F33.2 - Major depressive disorder, recurrent severe without psychotic features
[2017-01-02] MEDS: QUEtiapine FUMARATE 50 MG TAB PO PRN (21:48)
[2017-01-03] MEDS ORDERED: ONDANSETRON 4 MG/2 ML VIAL ONE (07:29)
[2017-01-03] MEDS ORDERED: ROCURONIUM 50 MG/5 ML VIAL ONE (07:29)
[2017-01-03] MEDS ORDERED: MIDAZOLAM 2 MG/2 ML VIAL ONE (07:29)
[2017-01-03] MEDS ORDERED: ETOMIDATE 20 MG/10 ML VIAL ONE (07:29)
[2017-01-03] MEDS ORDERED: GLYCOPYRROLATE 0.2 MG/1 ML VIAL ONE (07:29)
[2017-01-03] MEDS ORDERED: fentaNYL 100 MCG/2 ML INJ ONE (07:29)
[2017-01-03] MEDS ORDERED: SUCCINYLCHOLINE CHLORIDE 200 MG/10 ML VIAL ONE (07:30)
[2017-01-03] MEDS: SERTRALINE HCL 100 MG TAB PO SCH (08:15)
[2017-01-03] MEDS: CHOLECALCIFEROL VIT D3 2,000 UNITS TAB/CAP PO SCH (08:15)
[2017-01-03] MEDS: buPROPion XL 150 MG TAB PO SCH (08:20)
[2017-01-03] MEDS ORDERED: ONDANSETRON DISINTEGRATING 4 MG TAB ONE ×2 (09:54→11:54)
[2017-01-03] MEDS ORDERED: CITRIC ACID/SODIUM CITRATE 30 ML UDCUP ONE (09:55)
[2017-01-03] MEDS ORDERED: CITRIC ACID/SODIUM CITRATE 30 ML UDCUP PO ONE (11:11)
[2017-01-03] MEDS ORDERED: NS 1,000 ML IV ONE (11:11)
[2017-01-03] MEDS ORDERED: ONDANSETRON DISINTEGRATING 4 MG TAB PO ONE (11:11)
[2017-01-03] MEDS ORDERED: LIDOCAINE 2% 5 ML SDV ID ONE (11:11)
--- NOTE | 2017-01-03 14:27 | SOAPPROG ---
SOAP Progress Note Assessment/Plan: Assessment: Plan: 01/03/17 14:27 REmains quite depressed. Have begun acute course ECT. [facility]. Subjective: Pt seen, discussed with staff, chart reviewed. Admitted Tuesday due to severe decompensation. Unable to care for himself, crying, despondent. Did not feel safe to be out of the hospital. Underwent RUL ECT this morning with no complications. Had a good event with initial low amplitude that built, good morphology and good length of >30 seconds. Objective: Vital Signs Temp Pulse Resp BP Pulse Ox 36.6 C 52 L 12 107/60 95 01/03/17 14:13 01/03/17 14:13 01/03/17 14:13 01/03/17 14:13 01/03/17 14:13 - Time Spent With Patient Time Spent With Patient: 35" ICD10 Worksheet Patient Problems: Problems Problem Status Onset Depression, major, severe recurrence Acute Severe major depression Acute
[2017-01-03] MEDS ORDERED: ACETAMINOPHEN 325 MG TAB ONE (17:59)
[2017-01-03] MEDS: ACETAMINOPHEN 325 MG TAB PO PRN (18:00)
[2017-01-03] MEDS: clonazePAM 0.5 MG TAB PO PRN (21:18)
[2017-01-03] MEDS: QUEtiapine FUMARATE 50 MG TAB PO PRN (21:18)
[2017-01-04] MEDS: buPROPion XL 150 MG TAB PO SCH (09:00)
[2017-01-04] MEDS: CHOLECALCIFEROL VIT D3 2,000 UNITS TAB/CAP PO SCH (09:00)
[2017-01-04] MEDS: SERTRALINE HCL 100 MG TAB PO SCH (09:02)
[2017-01-04] MEDS ORDERED: HYDROCODONE/APAP 5/325 TAB PO PRN (11:41)
--- NOTE | 2017-01-04 14:02 | SOAPPROG ---
[place] Progress Note Assessment/Plan: Assessment: Plan: 01/03/17 14:27 REmains quite depressed. Have begun acute course ECT. CCM. 01/04/17 14:02 Tolerating ECT well. CCM. Subjective: Pt seen, discussed with staff. Reports some mild to moderate h/a immediately after ECT yesterday, o/w tolerated the procedure well. He continues to report feeling "very depressed." Also continues to struggle with helplessness and hopelessness. I reviewed with him the plan of care again. Objective: Vital Signs Temp Pulse Resp BP Pulse Ox 36.8 C 55 L 18 97/57 L 94 01/04/17 06:00 01/04/17 06:00 01/04/17 06:00 01/04/17 06:00 01/04/17 06:00 - Time Spent With Patient Time Spent With Patient: 25" - Pending Discharge Pending Discharge Within 24 Hours: No Pending Discharge Within 48 Hours: No ICD10 Worksheet Patient Problems: Problems Problem Status Onset Depression, major, severe recurrence Acute Severe major depression Acute
[2017-01-04] MEDS: QUEtiapine FUMARATE 50 MG TAB PO PRN (21:12)
[2017-01-05] MEDS ORDERED: CITRIC ACID/SODIUM CITRATE 30 ML UDCUP PO ONE (05:00)
[2017-01-05] MEDS ORDERED: LIDOCAINE 2% 5 ML SDV ID ONE (05:00)
[2017-01-05] MEDS ORDERED: NS 1,000 ML IV ONE (05:00)
[2017-01-05] MEDS ORDERED: ONDANSETRON DISINTEGRATING 4 MG TAB PO ONE (05:00)
[2017-01-05] MEDS ORDERED: MIDAZOLAM 2 MG/2 ML VIAL ONE (05:09)
[2017-01-05] MEDS ORDERED: fentaNYL 100 MCG/2 ML INJ ONE (05:10)
[2017-01-05] MEDS ORDERED: GLYCOPYRROLATE 0.2 MG/1 ML VIAL ONE (05:10)
[2017-01-05] MEDS ORDERED: SUCCINYLCHOLINE CHLORIDE 200 MG/10 ML VIAL ONE (05:10)
[2017-01-05] MEDS ORDERED: ETOMIDATE 20 MG/10 ML VIAL ONE (05:10)
[2017-01-05] MEDS ORDERED: ONDANSETRON 4 MG/2 ML VIAL ONE (05:10)
[2017-01-05] MEDS ORDERED: ROCURONIUM 50 MG/5 ML VIAL ONE (05:10)
[2017-01-05] MEDS ORDERED: ONDANSETRON DISINTEGRATING 4 MG TAB ONE (08:01)
[2017-01-05] MEDS ORDERED: CITRIC ACID/SODIUM CITRATE 30 ML UDCUP ONE (08:01)
[2017-01-05] MEDS ORDERED: PROPOFOL 200 MG/20 ML VIAL ONE (08:16)
[2017-01-05] MEDS: CHOLECALCIFEROL VIT D3 2,000 UNITS TAB/CAP PO SCH (10:36)
[2017-01-05] MEDS: buPROPion XL 150 MG TAB PO SCH (10:37)
[2017-01-05] MEDS: SERTRALINE HCL 100 MG TAB PO SCH (10:37)
--- NOTE | 2017-01-05 11:02 | SOAPPROG ---
[place] Progress Note Assessment/Plan: Assessment: Plan: 01/03/17 14:27 REmains quite depressed. Have begun acute course ECT. [facility]. 01/04/17 14:02 Tolerating ECT well. [facility]. 01/05/17 11:01 Early improvement. [facility]. Subjective: Pt seen, discussed with staff. Reports feeling "a little better" today. Mood remains low. Anxiety a bit better today. Less tearful. Underwent RUL UBP ECT without complication. Objective: Vital Signs Temp Pulse Resp BP Pulse Ox 36.8 C 58 L 12 120/63 95 01/05/17 10:30 01/05/17 10:30 01/05/17 10:30 01/05/17 10:30 01/05/17 10:30 - Time Spent With Patient Time Spent With Patient: 35" ICD10 Worksheet Patient Problems: Problems Problem Status Onset Depression, major, severe recurrence Acute Severe major depression Acute
[2017-01-05] MEDS: ACETAMINOPHEN 325 MG TAB PO PRN (17:48)
[2017-01-05] MEDS: clonazePAM 0.5 MG TAB PO PRN (21:49)
[2017-01-05] MEDS: QUEtiapine FUMARATE 50 MG TAB PO PRN (21:50)
[2017-01-06] MEDS: SERTRALINE HCL 100 MG TAB PO SCH (08:59)
[2017-01-06] MEDS: CHOLECALCIFEROL VIT D3 2,000 UNITS TAB/CAP PO SCH (08:59)
[2017-01-06] MEDS: buPROPion XL 150 MG TAB PO SCH (08:59)
--- NOTE | 2017-01-06 15:36 | SOAPPROG ---
[place] Progress Note Assessment/Plan: Assessment: Plan: 01/03/17 14:27 REmains quite depressed. Have begun acute course ECT. [facility]. 01/04/17 14:02 Tolerating ECT well. [facility]. 01/05/17 11:01 Early improvement. [facility]. 01/06/17 15:36 Quite down, despondent today. Will CCM. Subjective: Pt seen, discussed with staff. Reports feeling "really down" today. Also feels "couped up here." Went outside several times yesterday and enjoyed that. Remains despondent, withdrawn, though attending groups. 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 Objective: Vital Signs Temp Pulse Resp BP Pulse Ox 36.8 C 66 14 119/56 L 95 01/06/17 06:00 01/06/17 06:00 01/06/17 06:00 01/06/17 06:00 01/06/17 06:00 MSE: Moderately anxious, appropriately interactive. AFfect is o/w constricted , dysphoric. Mood is "terrible." TP linear. TC reveals no psychosis. SI present, "I just want to end it." - Time Spent With Patient Time Spent With Patient: 25" - Pending Discharge Pending Discharge Within 24 Hours: No Pending Discharge Within 48 Hours: No ICD10 Worksheet Patient Problems: Problems Problem Status Onset Depression, major, severe recurrence Acute Severe major depression Acute
[2017-01-06] MEDS: QUEtiapine FUMARATE 50 MG TAB PO PRN (21:32)
[2017-01-07] MEDS ORDERED: CITRIC ACID/SODIUM CITRATE 30 ML UDCUP PO ONE (05:00)
[2017-01-07] MEDS ORDERED: LIDOCAINE 2% 5 ML SDV ID ONE (05:00)
[2017-01-07] MEDS ORDERED: NS 1,000 ML IV ONE (05:00)
[2017-01-07] MEDS ORDERED: ONDANSETRON DISINTEGRATING 4 MG TAB PO ONE (05:00)
[2017-01-07] MEDS ORDERED: ETOMIDATE 20 MG/10 ML VIAL ONE (05:34)
[2017-01-07] MEDS ORDERED: fentaNYL 100 MCG/2 ML INJ ONE (05:34)
[2017-01-07] MEDS ORDERED: GLYCOPYRROLATE 0.2 MG/1 ML VIAL ONE (05:34)
[2017-01-07] MEDS ORDERED: PROPOFOL 200 MG/20 ML VIAL ONE (05:34)
[2017-01-07] MEDS ORDERED: ONDANSETRON 4 MG/2 ML VIAL ONE (05:34)
[2017-01-07] MEDS ORDERED: MIDAZOLAM 2 MG/2 ML VIAL ONE (05:34)
[2017-01-07] MEDS ORDERED: SUCCINYLCHOLINE CHLORIDE 200 MG/10 ML VIAL ONE (05:35)
[2017-01-07] MEDS ORDERED: ROCURONIUM 50 MG/5 ML VIAL ONE (05:35)
[2017-01-07] MEDS ORDERED: ONDANSETRON DISINTEGRATING 4 MG TAB ONE (07:51)
[2017-01-07] MEDS ORDERED: CITRIC ACID/SODIUM CITRATE 30 ML UDCUP ONE (07:52)
[2017-01-07] MEDS: buPROPion XL 150 MG TAB PO SCH (11:26)
[2017-01-07] MEDS: CHOLECALCIFEROL VIT D3 2,000 UNITS TAB/CAP PO SCH (11:26)
[2017-01-07] MEDS: SERTRALINE HCL 100 MG TAB PO SCH (11:26)
--- NOTE | 2017-01-07 13:32 | SOAPPROG ---
SOAP Progress Note Assessment/Plan: Assessment: Plan: 01/03/17 14:27 REmains quite depressed. Have begun acute course ECT. [facility]. 01/04/17 14:[address] [facility]. 01/05/17 11:[address] [facility]. 01/06/17 15:36 Quite down, despondent today. Will [facility]. 01/07/17 13:[address] [facility]. Subjective: Pt seen, discussed with staff. Slept well last night. Pt's therapist and his ex- called to "discuss a patient care issue." Pt denies any knowledge of what this would be. Conchita talked to the therapist who wanted to know what the next step was after inpt. Pt remains anxious, though better. Underwent RUL UBP ECT this morning without complication. Objective: Vital Signs Temp Pulse Resp BP Pulse Ox 36.7 C 62 14 97/53 L 94 01/07/17 11:20 01/07/17 11:20 01/07/17 11:20 01/07/17 11:20 01/07/17 11:20 MSE: Calm, coop. Affect is constricted, stable. Mood is "still depressed." TP linear. TC reveals no psychosis. SI persists. - Time Spent With Patient Time Spent With Patient: 35" - Pending Discharge Pending Discharge Within 24 Hours: No Pending Discharge Within 48 Hours: No ICD10 Worksheet Patient Problems: Problems Problem Status Onset Depression, major, severe recurrence Acute Severe major depression Acute
[2017-01-07] MEDS: QUEtiapine FUMARATE 50 MG TAB PO PRN (21:45)
[2017-01-07] MEDS: clonazePAM 0.5 MG TAB PO PRN (21:46)
[2017-01-08] MEDS: SERTRALINE HCL 100 MG TAB PO SCH (09:23)
[2017-01-08] MEDS: buPROPion XL 150 MG TAB PO SCH (09:23)
[2017-01-08] MEDS: CHOLECALCIFEROL VIT D3 2,000 UNITS TAB/CAP PO SCH (09:23)
--- NOTE | 2017-01-08 15:27 | SOAPPROG ---
SOAP Progress Note Assessment/Plan: Assessment: 56yo CM with treatment-resistant depression admitted for acute course ECT, started last week. 01/08/17 15:57 per staff, slept 8hr. attending groups. still depressed. states he feels over past 2 d his depression has returned to level prior to admission, from 8-9/10, to 6-7/10 during week and now again 8-9/10. notes perhaps b/c milieu has been more intense recently, and quieter earlier in week. sleeping okay. attending gps altho missed them today +SI "to get out of my body" but no plan/intent. Has twin 9yo's he misses and is why he wouldn't harm self. t/a failed marriage and work concerns as well as other stressors outside hospital and ppts to admission. has been reading Rodrigue Chowdary to take mind off stressors/perseverations. denied med s/e MSE: cooperative, nml ec and psychom activity, nml speech rate altho somewhat low vol and decr prosody, mood depressed, affect congruent/restricted range, thoughts linear but some rumination on losses, +passive SI, no plan/intent, denied psychotic sxs, no ah/vh, i/j-limited plan: cont current meds and ECT course. reviewed expectations and timeframe for benefits of ECT also encouraged group attendance/participation Objective: Vital Signs Temp Pulse Resp BP Pulse Ox 37.0 C 62 16 119/75 92 01/08/17 06:00 01/08/17 06:00 01/08/17 06:00 01/08/17 06:00 01/08/17 06:00 - Time Spent With Patient Time Spent With Patient: 35min - Pending Discharge Pending Discharge Within 24 Hours: No Pending Discharge Within 48 Hours: No ICD10 Worksheet Patient Problems: Problems Problem Status Onset Depression, major, severe recurrence Acute Severe major depression Acute
[2017-01-08] MEDS: QUEtiapine FUMARATE 50 MG TAB PO PRN (22:03)
[2017-01-08] MEDS: clonazePAM 0.5 MG TAB PO PRN (22:03)
[2017-01-09] MEDS: SERTRALINE HCL 100 MG TAB PO SCH (08:32)
[2017-01-09] MEDS: buPROPion XL 150 MG TAB PO SCH (08:32)
[2017-01-09] MEDS: CHOLECALCIFEROL VIT D3 2,000 UNITS TAB/CAP PO SCH (08:32)
[2017-01-09] MEDS: QUEtiapine FUMARATE 50 MG TAB PO PRN (20:34)
--- NOTE | 2017-01-10 00:59 | SOAPPROG ---
SOAP Progress Note Assessment/Plan: Assessment: 56yo CM with treatment-resistant depression admitted for acute course ECT, started last week. 01/08/17 15:57 per staff, slept 8hr. attending groups. still depressed. states he feels over past 2 d his depression has returned to level prior to admission, from 8-9/10, to 6-7/10 during week and now again 8-9/10. notes perhaps b/c milieu has been more intense recently, and quieter earlier in week. sleeping okay. attending gps altho missed them today +SI "to get out of my body" but no plan/intent. Has twin 9yo's he misses and is why he wouldn't harm self. t/a failed marriage and work concerns as well as other stressors outside hospital and ppts to admission. has been reading Rodrigue Chowdary to take mind off stressors/perseverations. denied med s/e MSE: cooperative, nml ec and psychom activity, nml speech rate altho somewhat low vol and decr prosody, mood depressed, affect congruent/restricted range, thoughts linear but some rumination on losses, +passive SI, no plan/intent, denied psychotic sxs, no ah/vh, i/j-limited plan: cont current meds and ECT course. reviewed expectations and timeframe for benefits of ECT also encouraged group attendance/participation 01/09/17 18:51 slept 8hr. attending gps. taking meds. +depressed reports +depr and anxiety, feels his "life is coming apart" while here in hospital. decr appetite. +passive SI, "I'm tired of being". only finds his 9yo twins as reason for living. talked with them on phone last night which was uplifting. "but I had to kick it up several notches" to pretend all was fine when talking with them. seems withdrawn, with restricted/depressed affect, +depr mood, low vol speech, fair eye contact. no psychosis. denied plan/intent to harm self but +SI. did not voice any thoughts to harm others. i/j limited plan: cont meds, ECT scheduled #4 tomorrow. pt still plans to continue with tx plan. would like to use laptop to do some work which will decr some stress. will need to d/w team what rules are around this on unit. (perhaps can use while on AG?) has AG, using appropriately Objective: Vital Signs Temp Pulse Resp BP Pulse Ox 36.7 C 97 18 110/65 97 01/09/17 06:00 01/09/17 06:00 01/09/17 06:00 01/09/17 06:00 01/09/17 06:00 - Time Spent With Patient Time Spent With Patient: 15min - Pending Discharge Pending Discharge Within 24 Hours: No Pending Discharge Within 48 Hours: No ICD10 Worksheet Patient Problems: Problems Problem Status Onset Depression, major, severe recurrence Acute Severe major depression Acute
[2017-01-10] MEDS ORDERED: MIDAZOLAM 2 MG/2 ML VIAL ONE (05:25)
[2017-01-10] MEDS ORDERED: LIDOCAINE 2% 5 ML SDV ONE (05:26)
[2017-01-10] MEDS ORDERED: GLYCOPYRROLATE 0.2 MG/1 ML VIAL ONE (05:26)
[2017-01-10] MEDS ORDERED: fentaNYL 100 MCG/2 ML INJ ONE (05:26)
[2017-01-10] MEDS ORDERED: ONDANSETRON 4 MG/2 ML VIAL ONE (05:26)
[2017-01-10] MEDS ORDERED: ETOMIDATE 20 MG/10 ML VIAL ONE (05:26)
[2017-01-10] MEDS ORDERED: PROPOFOL 200 MG/20 ML VIAL ONE (05:26)
[2017-01-10] MEDS ORDERED: ROCURONIUM 50 MG/5 ML VIAL ONE (05:27)
[2017-01-10] MEDS ORDERED: SUCCINYLCHOLINE CHLORIDE 200 MG/10 ML VIAL ONE (05:27)
[2017-01-10] MEDS ORDERED: THEOPHYLLINE ORAL SOLUTION 80 MG/15 ML UDCUP PO ONE (05:41)
[2017-01-10] MEDS ORDERED: LIDOCAINE 2% 5 ML SDV ID ONE (05:41)
[2017-01-10] MEDS ORDERED: ONDANSETRON DISINTEGRATING 4 MG TAB PO ONE (05:41)
[2017-01-10] MEDS ORDERED: NS 1,000 ML IV ONE (05:41)
[2017-01-10] MEDS ORDERED: CITRIC ACID/SODIUM CITRATE 30 ML UDCUP PO ONE (05:41)
[2017-01-10] MEDS ORDERED: THEOPHYLLINE ORAL SOLUTION 80 MG/15 ML UDCUP ONE (05:54)
[2017-01-10] MEDS ORDERED: ONDANSETRON DISINTEGRATING 4 MG TAB ONE (06:55)
[2017-01-10] MEDS ORDERED: CITRIC ACID/SODIUM CITRATE 30 ML UDCUP ONE (06:55)
[2017-01-10] MEDS: CHOLECALCIFEROL VIT D3 2,000 UNITS TAB/CAP PO SCH (08:25)
[2017-01-10] MEDS: buPROPion XL 150 MG TAB PO SCH (08:25)
[2017-01-10] MEDS: SERTRALINE HCL 100 MG TAB PO SCH (08:26)
[2017-01-10] MEDS: LORazepam 0.5 MG TAB PO PRN (14:00)
--- NOTE | 2017-01-10 21:52 | SOAPPROG ---
SOAP Progress Note Assessment/Plan: Assessment: Plan: 01/03/17 14:27 REmains quite depressed. Have begun acute course ECT. [facility]. 01/04/17 14:02 Tolerating ECT well. [facility]. 01/05/17 11:01 Early improvement. CCM. 01/06/17 15:36 Quite down, despondent today. Will [facility]CM. 01/07/17 13:32 Better today. CCM. 01/10/17 21:51 Objective improvement. [facility]. Subjective: Pt seen, discussed with staff. Reports difficult weekend with prominent sadness , despair, loneliness and grief. Mood remains low. Underwent ECT without complication. Case reviewed with Dr. El. Objective: Vital Signs Temp Pulse Resp BP Pulse Ox 36.5 C 65 14 106/57 L 96 01/10/17 10:39 01/10/17 10:39 01/10/17 10:39 01/10/17 10:39 01/10/17 10:39 MSE: Calm, coop. Affect is brighter, despite continued depressive report. Mood is "really down." TP linear. TC reveals no psychosis. SI persists. - Time Spent With Patient Time Spent With Patient: 35" - Pending Discharge Pending Discharge Within 24 Hours: No Pending Discharge Within 48 Hours: No ICD10 Worksheet Patient Problems: Problems Problem Status Onset Depression, major, severe recurrence Acute Severe major depression Acute
[2017-01-10] MEDS: clonazePAM 0.5 MG TAB PO PRN (22:13)
[2017-01-10] MEDS: QUEtiapine FUMARATE 50 MG TAB PO PRN (22:14)
[2017-01-11] MEDS: SERTRALINE HCL 100 MG TAB PO SCH (09:25)
[2017-01-11] MEDS: buPROPion XL 150 MG TAB PO SCH (09:25)
[2017-01-11] MEDS: CHOLECALCIFEROL VIT D3 2,000 UNITS TAB/CAP PO SCH (09:25)
--- NOTE | 2017-01-11 16:44 | SOAPPROG ---
SOAP Progress Note Assessment/Plan: Assessment: Plan: 01/03/17 14:27 REmains quite depressed. Have begun acute course ECT. [facility]. 01/04/17 14:02 Tolerating ECT well. [facility]. 01/05/17 11:01 Early improvement. [facility]. 01/06/17 15:36 Quite down, despondent today. Will [facility]. 01/07/17 13:32 Better today. [facility]. 01/10/17 21:51 Objective improvement. [facility]. 01/11/17 16:43 Tolerating ECT well. Remains subjectively depressed, though objectively improving. [facility]. Subjective: Pt seen, discussed with staff. Reports feeling "really down and anxious." Remains sullen and rather needy at times. Struggles to accept possiblity of positive change. Objective: Vital Signs Temp Pulse Resp BP Pulse Ox 36.7 C 56 L 14 111/55 L 96 01/11/17 06:00 01/11/17 06:00 01/11/17 06:00 01/11/17 06:00 01/11/17 06:00 MSE: Moderately anxious, coop. Affect is constricted, anxious, dysphoric. Mood is "really depressed and anxious." TP linear. TC reveals no psychosis. - Time Spent With Patient Time Spent With Patient: 25" ICD10 Worksheet Patient Problems: Problems Problem Status Onset Depression, major, severe recurrence Acute Severe major depression Acute
[2017-01-11] MEDS: QUEtiapine FUMARATE 50 MG TAB PO PRN (21:14)
[2017-01-12] MEDS ORDERED: THEOPHYLLINE ORAL SOLUTION 80 MG/15 ML UDCUP PO ONE (04:00)
[2017-01-12] MEDS ORDERED: ONDANSETRON DISINTEGRATING 4 MG TAB PO ONE (04:00)
[2017-01-12] MEDS ORDERED: LIDOCAINE 2% 5 ML SDV ID ONE (04:00)
[2017-01-12] MEDS ORDERED: CITRIC ACID/SODIUM CITRATE 30 ML UDCUP PO ONE (04:00)
[2017-01-12] MEDS ORDERED: NS 1,000 ML IV ONE (04:00)
[2017-01-12] MEDS ORDERED: MIDAZOLAM 2 MG/2 ML VIAL ONE (05:47)
[2017-01-12] MEDS ORDERED: fentaNYL 100 MCG/2 ML INJ ONE (05:47)
[2017-01-12] MEDS ORDERED: ROCURONIUM 50 MG/5 ML VIAL ONE (05:48)
[2017-01-12] MEDS ORDERED: SUCCINYLCHOLINE CHLORIDE 200 MG/10 ML VIAL ONE (05:48)
[2017-01-12] MEDS ORDERED: PROPOFOL 200 MG/20 ML VIAL ONE (05:48)
[2017-01-12] MEDS ORDERED: ONDANSETRON 4 MG/2 ML VIAL ONE (05:48)
[2017-01-12] MEDS ORDERED: ETOMIDATE 20 MG/10 ML VIAL ONE (05:48)
[2017-01-12] MEDS ORDERED: GLYCOPYRROLATE 0.2 MG/1 ML VIAL ONE (05:48)
[2017-01-12] MEDS ORDERED: CITRIC ACID/SODIUM CITRATE 30 ML UDCUP ONE (07:45)
[2017-01-12] MEDS ORDERED: ONDANSETRON DISINTEGRATING 4 MG TAB ONE (07:45)
[2017-01-12] MEDS: CHOLECALCIFEROL VIT D3 2,000 UNITS TAB/CAP PO SCH (09:55)
[2017-01-12] MEDS: buPROPion XL 150 MG TAB PO SCH (09:55)
[2017-01-12] MEDS: SERTRALINE HCL 100 MG TAB PO SCH (09:55)
--- NOTE | 2017-01-12 15:31 | SOAPPROG ---
SOAP Progress Note Assessment/Plan: Assessment: Plan: 01/03/17 14:27 REmains quite depressed. Have begun acute course ECT. [facility]. 01/04/17 14:02 Tolerating ECT well. [facility]. 01/05/17 11:01 Early improvement. [facility]. 01/06/17 15:36 Quite down, despondent today. Will [facility]. 01/07/17 13:32 Better today. [facility]. 01/10/17 21:51 Objective improvement. [facility]. 01/11/17 16:43 Tolerating ECT well. Remains subjectively depressed, though objectively improving. [facility]. 01/12/17 15:33 Starting to see some subjective improvement. CCM. Continue d/c planning. Subjective: Pt seen, discussed with staff. Reports feeling "really low" before ECT. [place] significantly better afterwards. Underwent RUL UBP ECT without complication. Adequate length, good morphology, good suppression. Team discussed possible d/ c plans in treatment planning meeting this morning. Objective: Vital Signs Temp Pulse Resp BP Pulse Ox 36.8 C 64 14 125/72 H 96 01/12/17 11:15 01/12/17 11:15 01/12/17 11:15 01/12/17 11:15 01/12/17 11:15 MSE: Calm, coop. Affect is constricted, stable, less dysphoric. Mood is "depressed." TP linear. TC reveals no psychosis. Denies active SI, but remains helpless and hopeless, stating he cannot care for himself out of the hospital. - Time Spent With Patient Time Spent With Patient: 35" ICD10 Worksheet Patient Problems: Problems Problem Status Onset Depression, major, severe recurrence Acute Severe major depression Acute
[2017-01-12] MEDS: QUEtiapine FUMARATE 50 MG TAB PO PRN (20:56)
[2017-01-12] MEDS: clonazePAM 0.5 MG TAB PO PRN (20:56)
[2017-01-13] MEDS: CHOLECALCIFEROL VIT D3 2,000 UNITS TAB/CAP PO SCH (08:37)
[2017-01-13] MEDS: buPROPion XL 150 MG TAB PO SCH (08:37)
[2017-01-13] MEDS: SERTRALINE HCL 100 MG TAB PO SCH (08:37)
[2017-01-13] MEDS ORDERED: QUEtiapine FUMARATE 25 MG TAB PO PRN (11:24)
[2017-01-13] MEDS: LORazepam 0.5 MG TAB PO PRN (11:45)
--- NOTE | 2017-01-13 15:51 | SOAPPROG ---
[facility] Progress Note Assessment/Plan: Assessment: Plan: 01/03/17 14:27 REmains quite depressed. Have begun acute course ECT. [facility]. 01/04/17 14:02 Tolerating ECT well. [facility]. 01/05/17 11:01 Early improvement. [facility]. 01/06/17 15:36 Quite down, despondent today. Will [facility]. 01/07/17 13:32 Better today. [facility]. 01/10/17 21:51 Objective improvement. [facility]. 01/11/17 16:43 Tolerating ECT well. Remains subjectively depressed, though objectively improving. [facility]. 01/12/17 15:33 Starting to see some subjective improvement. [facility]. Continue d/c planning. 01/13/17 16:18 Pt remains withdrawn, prostrate. This is largely due to his depression as friends and family all report that he is only like this when he is depressed. Will [facility] with ECT tomorrow. Subjective: Pt seen, discussed with staff. Reports feeling "very anxious and depressed this morning." He is focused on the need to get some billing done for his work and to pay his mortgage. He is unable to problem solve any of this and instead continues his inactive, prostrate, dependent stance. I was fairly confrontational with about his overriding negativity and inactive stance. He responded well to this and agreed to work to solve one of his issues today. Tolerating ECT well with good cognition and no h/a's. Objective: Vital Signs Temp Pulse Resp BP Pulse Ox 36.8 C 73 14 118/70 93 01/13/17 06:25 01/13/17 06:25 01/13/17 06:25 01/13/17 06:25 01/13/17 06:25 MSE: Moderately anxious, coop. Affect is constricted, anxious, stable. Mood is "depressed and anxious." TP linear. TC reveals no psychosis. Denies active SI though states he "cannot care for myself." - Time Spent With Patient Time Spent With Patient: 35" ICD10 Worksheet Patient Problems: Problems Problem Status Onset Depression, major, severe recurrence Acute Severe major depression Acute
[2017-01-13] MEDS: QUEtiapine FUMARATE 50 MG TAB PO PRN (21:15)
[2017-01-14] MEDS ORDERED: LIDOCAINE 2% 5 ML SDV ID ONE (04:00)
[2017-01-14] MEDS ORDERED: THEOPHYLLINE ORAL SOLUTION 80 MG/15 ML UDCUP PO ONE (04:00)
[2017-01-14] MEDS ORDERED: NS 1,000 ML IV ONE (04:00)
[2017-01-14] MEDS ORDERED: CITRIC ACID/SODIUM CITRATE 30 ML UDCUP PO ONE (04:00)
[2017-01-14] MEDS ORDERED: ONDANSETRON DISINTEGRATING 4 MG TAB PO ONE (04:00)
[2017-01-14] MEDS ORDERED: LIDOCAINE 2% 5 ML SDV ONE (05:53)
[2017-01-14] MEDS ORDERED: CITRIC ACID/SODIUM CITRATE 30 ML UDCUP ONE (06:15)
[2017-01-14] MEDS ORDERED: ONDANSETRON DISINTEGRATING 4 MG TAB ONE (06:15)
[2017-01-14] MEDS ORDERED: fentaNYL 100 MCG/2 ML INJ ONE (06:35)
[2017-01-14] MEDS ORDERED: MIDAZOLAM 2 MG/2 ML VIAL ONE (06:35)
[2017-01-14] MEDS ORDERED: PROPOFOL 200 MG/20 ML VIAL ONE (06:36)
[2017-01-14] MEDS ORDERED: ONDANSETRON 4 MG/2 ML VIAL ONE (06:36)
[2017-01-14] MEDS ORDERED: GLYCOPYRROLATE 0.2 MG/1 ML VIAL ONE (06:36)
[2017-01-14] MEDS ORDERED: ETOMIDATE 20 MG/10 ML VIAL ONE (06:36)
[2017-01-14] MEDS ORDERED: ROCURONIUM 50 MG/5 ML VIAL ONE (06:36)
[2017-01-14] MEDS ORDERED: SUCCINYLCHOLINE CHLORIDE 200 MG/10 ML VIAL ONE (06:37)
[2017-01-14] MEDS: buPROPion XL 150 MG TAB PO SCH (08:43)
[2017-01-14] MEDS: CHOLECALCIFEROL VIT D3 2,000 UNITS TAB/CAP PO SCH (08:43)
[2017-01-14] MEDS: SERTRALINE HCL 100 MG TAB PO SCH (08:43)
--- NOTE | 2017-01-14 09:21 | SOAPPROG ---
[facility] Progress Note Assessment/Plan: Assessment: Plan: 01/03/17 14:27 REmains quite depressed. Have begun acute course ECT. [facility]. 01/04/17 14:02 Tolerating ECT well. [facility]. 01/05/17 11:01 Early improvement. [facility]. 01/06/17 15:36 Quite down, despondent today. Will [facility]. 01/07/17 13:32 Better today. [facility]. 01/10/17 21:51 Objective improvement. [facility]. 01/11/17 16:43 Tolerating ECT well. Remains subjectively depressed, though objectively improving. [facility]. 01/12/17 15:33 Starting to see some subjective improvement. [facility]CM. Continue d/c planning. 01/13/17 16:18 Pt remains withdrawn, prostrate. This is largely due to his depression as friends and family all report that he is only like this when he is depressed. Will [facility] with ECT tomorrow. 01/14/17 09:21 Improving. [facility]. Subjective: Pt seen, discussed with staff. Reports feeling calmer today. Able to attend to several business issues yesterday with assistance. Mood is brighter. States he feels better but still cannot envision caring for himself alone at home. Underwent bilateral ECT without complication. Objective: Vital Signs Temp Pulse Resp BP Pulse Ox 36.4 C 87 14 124/82 H 91 L 01/14/17 07:55 01/14/17 07:55 01/14/17 07:55 01/14/17 07:55 01/14/17 07:55 MSE: Calm, coop. AFfect is brighter, stable, approp. Mood is "better." TP linear. TC reveals no psychosis. - Time Spent With Patient Time Spent With Patient: 35" ICD10 Worksheet Patient Problems: Problems Problem Status Onset Depression, major, severe recurrence Acute Severe major depression Acute
[2017-01-14] MEDS: QUEtiapine FUMARATE 50 MG TAB PO PRN (21:21)
[2017-01-14] MEDS: clonazePAM 0.5 MG TAB PO PRN (21:22)
[2017-01-15] MEDS: SERTRALINE HCL 100 MG TAB PO SCH (08:30)
[2017-01-15] MEDS: CHOLECALCIFEROL VIT D3 2,000 UNITS TAB/CAP PO SCH (08:30)
[2017-01-15] MEDS: buPROPion XL 150 MG TAB PO SCH (08:30)
--- NOTE | 2017-01-15 13:35 | SOAPPROG ---
[facility] Progress Note Assessment/Plan: Assessment: Per Dr. Ribeiro's past SOAP progress notes: 01/03/17 14:27 REmains quite depressed. Have begun acute course ECT. [facility]. 01/04/17 14:02 Tolerating ECT well. [facility]. 01/05/17 11:01 Early improvement. [facility]. 01/06/17 15:36 Quite down, despondent today. Will [facility]. 01/07/17 13:32 Better today. [facility]. 01/10/17 21:51 Objective improvement. [facility]. 01/11/17 16:43 Tolerating ECT well. Remains subjectively depressed, though objectively improving. [facility]. 01/12/17 15:33 Starting to see some subjective improvement. [facility]. Continue d/c planning. 01/13/17 16:18 Pt remains withdrawn, prostrate. This is largely due to his depression as friends and family all report that he is only like this when he is depressed. Will [facility] with ECT tomorrow. 01/14/17 09:21 Improving. [facility]. 01/15/17 13:30 Plan: 1. [facility]. Patient reports he doesn't notice much improvement with ECT, however, he presents with objective indicators of improvement, a/e/b attending all groups and actively participating, engaging in spontaneous conversations with peers, eating all meals, sleeping well at night. 2. When asked by staff rated his anxiety as "zero" and depression as "three," but when asked by MD, he said he felt "very anxious" and "depressed." Subjective: Met with patient, reviewed chart and discussed with staff. Patient had his 6th ECT on 01/14/17. He says "after the 5th one I felt a little bit different." But then goes on to tell MD that "nothing has really changed" and he still feels "depressed." He says he is worried if he has to go home because he doesn't want to be alone. He also says he is "stressed out" b/c his friends told him that his cats are using his son's room "for a litter box." Patient says he thinks "it 's important to try to finish the [ECT] treatments" but is not sure if they're helping or not. He denies any thoughts, plan or intent to hurt himself or anyone else. Objective: Vital Signs Temp Pulse Resp BP Pulse Ox 36.6 C 65 12 121/75 H 95 01/15/17 06:25 01/15/17 06:25 01/15/17 06:25 01/15/17 06:25 01/15/17 06:25 MSE: Well-groomed, appropriately dressed, calm, cooperative. Affect: Tearful Mood: "Depressed" TP: Linear TC: Denies any AH/VH, no SI/HI Insight/Judgment : Fair - Time Spent With Patient Time Spent With Patient: 25" - Pending Discharge Pending Discharge Within 24 Hours: No ICD10 Worksheet Patient Problems: Problems Problem Status Onset Depression, major, severe recurrence Acute Severe major depression Acute - ICD10 Problem Qualifiers (1) Depression, major, severe recurrence Qualifiers: Psychotic features: without psychotic features Qualified Code(s): F33.2 - Major depressive disorder, recurrent severe without psychotic features
[2017-01-15] MEDS: clonazePAM 0.5 MG TAB PO PRN (20:54)
[2017-01-15] MEDS: QUEtiapine FUMARATE 50 MG TAB PO PRN (20:55)
[2017-01-16] MEDS: CHOLECALCIFEROL VIT D3 2,000 UNITS TAB/CAP PO SCH (08:29)
[2017-01-16] MEDS: buPROPion XL 150 MG TAB PO SCH (08:29)
[2017-01-16] MEDS: SERTRALINE HCL 100 MG TAB PO SCH (08:29)
--- NOTE | 2017-01-16 13:42 | SOAPPROG ---
[facility] Progress Note Assessment/Plan: Assessment: Per Dr. Ribeiro's past SOAP progress notes: 01/03/17 14:27 REmains quite depressed. Have begun acute course ECT. [facility]. 01/04/17 14:02 Tolerating ECT well. [facility]. 01/05/17 11:01 Early improvement. [facility]. 01/06/17 15:36 Quite down, despondent today. Will [facility]. 01/07/17 13:32 Better today. [facility]. 01/10/17 21:51 Objective improvement. [facility]. 01/11/17 16:43 Tolerating ECT well. Remains subjectively depressed, though objectively improving. [facility]. 01/12/17 15:33 Starting to see some subjective improvement. [facility]CM. Continue d/c planning. 01/13/17 16:18 Pt remains withdrawn, prostrate. This is largely due to his depression as friends and family all report that he is only like this when he is depressed. Will [facility] with ECT tomorrow. 01/14/17 09:21 Improving. [facility]. 01/15/17 13:30 Plan: 1. [facility]. Patient reports he doesn't notice much improvement with ECT, however, he presents with objective indicators of improvement, a/e/b attending all groups and actively participating, engaging in spontaneous conversations with peers, eating all meals, sleeping well at night. 2. When asked by staff rated his anxiety as "zero" and depression as "three," but when asked by MD, he said he felt "very anxious" and "depressed." 01/16/17 13:37 Plan: 1. No significant change. Still "depressed," but attending groups and has pleasant affect. 2. ECT tomorrow Subjective: Met with patient and discussed with staff. Patient is present in milieu, attending groups, engages with peers, but still claims he is "too depressed" to go home. He is worried if he gets discharged home, he will feel "lonely" b/c he doesn't think his friends will come visit him as often as they used to. He feels like they might be burned out from all the care they gave him prior to his admission. He's afraid to call them, though, and actually discuss an aftercare plan with them b/c he's afraid of what they might say. MD encouraged him to come up with a plan to keep himself busy and schedule time to spend with friends. suggested he start by talking to friends on phone while in hospital and updating them on his condition. And proposing ways he and his friends can spend time together that is fun for both of them. Objective: Vital Signs Temp Pulse Resp BP Pulse Ox 36.8 C 55 L 13 97/54 L 94 01/16/17 06:00 01/16/17 06:00 01/16/17 06:00 01/16/17 06:00 01/16/17 06:00 MSE: Well-groomed, wearing shorts and T-shirt. Affect: Euthymic Mood: "Depressed" TP: Linear, goal-directed TC: Denies AH/VH, no paranoia/delusions , denies SI/HI Insight/Judgment: Fair - Time Spent With Patient Time Spent With Patient: 20" - Pending Discharge Pending Discharge Within 24 Hours: No ICD10 Worksheet Patient Problems: Problems Problem Status Onset Depression, major, severe recurrence Acute Severe major depression Acute - ICD10 Problem Qualifiers (1) Depression, major, severe recurrence Qualifiers: Psychotic features: without psychotic features Qualified Code(s): F33.2 - Major depressive disorder, recurrent severe without psychotic features
[2017-01-16] MEDS: QUEtiapine FUMARATE 50 MG TAB PO PRN (20:49)
[2017-01-17] MEDS ORDERED: THEOPHYLLINE ORAL SOLUTION 80 MG/15 ML UDCUP PO ONE (06:05)
[2017-01-17] MEDS ORDERED: CITRIC ACID/SODIUM CITRATE 30 ML UDCUP PO ONE (06:05)
[2017-01-17] MEDS ORDERED: LIDOCAINE 2% 5 ML SDV ID ONE (06:05)
[2017-01-17] MEDS ORDERED: NS 1,000 ML IV ONE (06:05)
[2017-01-17] MEDS ORDERED: ONDANSETRON DISINTEGRATING 4 MG TAB PO ONE (06:05)
[2017-01-17] MEDS ORDERED: ONDANSETRON DISINTEGRATING 4 MG TAB ONE (06:54)
[2017-01-17] MEDS ORDERED: CITRIC ACID/SODIUM CITRATE 30 ML UDCUP ONE (06:54)
[2017-01-17] MEDS ORDERED: ETOMIDATE 20 MG/10 ML VIAL ONE (07:01)
[2017-01-17] MEDS ORDERED: MIDAZOLAM 2 MG/2 ML VIAL ONE (07:02)
[2017-01-17] MEDS ORDERED: GLYCOPYRROLATE 0.2 MG/1 ML VIAL ONE (07:03)
[2017-01-17] MEDS ORDERED: SUCCINYLCHOLINE CHLORIDE 200 MG/10 ML VIAL ONE (07:03)
[2017-01-17] MEDS ORDERED: ROCURONIUM 50 MG/5 ML VIAL ONE (07:03)
[2017-01-17] MEDS ORDERED: ONDANSETRON 4 MG/2 ML VIAL ONE (07:03)
[2017-01-17] MEDS ORDERED: PROPOFOL 200 MG/20 ML VIAL ONE (07:03)
[2017-01-17] MEDS ORDERED: fentaNYL 100 MCG/2 ML INJ ONE (07:03)
[2017-01-17] MEDS: buPROPion XL 150 MG TAB PO SCH (08:29)
[2017-01-17] MEDS: SERTRALINE HCL 100 MG TAB PO SCH (08:29)
[2017-01-17] MEDS: CHOLECALCIFEROL VIT D3 2,000 UNITS TAB/CAP PO SCH (08:29)
--- NOTE | 2017-01-17 14:35 | SOAPPROG ---
[facility] Progress Note Assessment/Plan: Assessment: Plan: 01/03/17 14:27 REmains quite depressed. Have begun acute course ECT. [facility]. 01/04/17 14:02 Tolerating ECT well. [facility]. 01/05/17 11:01 Early improvement. [facility]. 01/06/17 15:36 Quite down, despondent today. Will [facility]. 01/07/17 13:32 Better today. [facility]. 01/10/17 21:51 Objective improvement. [facility]. 01/11/17 16:43 Tolerating ECT well. Remains subjectively depressed, though objectively improving. [facility]. 01/12/17 15:33 Starting to see some subjective improvement. [facility]. Continue d/c planning. 01/13/17 16:18 Pt remains withdrawn, prostrate. This is largely due to his depression as friends and family all report that he is only like this when he is depressed. Will [facility] with ECT tomorrow. 01/14/17 09:21 Improving. [facility]. 01/17/17 14:35 Continued improvement. [facility]. Subjective: Pt seen, discussed with staff, chart reviewed. He reports feeling subjectively better today. Remained withdrawn and anxious over the weekend. Continues to believe he cannot care for himself at home at this point. Unable to identify supports. Underwent ECT this morning without complication. Objective: Vital Signs Temp Pulse Resp BP Pulse Ox 36.6 C 67 14 107/59 L 95 01/17/17 10:36 01/17/17 10:36 01/17/17 10:36 01/17/17 10:36 01/17/17 10:36 MSE: Calm and coop. Affect is blunted, stable, approp., brighter than on last encounter. Mood is "a little better." TP linear. TC reveals no psychosis. - Time Spent With Patient Time Spent With Patient: 35" ICD10 Worksheet Patient Problems: Problems Problem Status Onset Depression, major, severe recurrence Acute Severe major depression Acute
[2017-01-17] MEDS: QUEtiapine FUMARATE 50 MG TAB PO PRN (21:32)
[2017-01-17] MEDS: clonazePAM 0.5 MG TAB PO PRN (21:32)
[2017-01-18] MEDS: SERTRALINE HCL 100 MG TAB PO SCH (08:29)
[2017-01-18] MEDS: CHOLECALCIFEROL VIT D3 2,000 UNITS TAB/CAP PO SCH (08:29)
[2017-01-18] MEDS: buPROPion XL 150 MG TAB PO SCH (08:29)
--- NOTE | 2017-01-18 16:41 | SOAPPROG ---
[facility] Progress Note Assessment/Plan: Assessment: Plan: 01/03/17 14:27 REmains quite depressed. Have begun acute course ECT. [facility]. 01/04/17 14:02 Tolerating ECT well. [facility]. 01/05/17 11:01 Early improvement. [facility]. 01/06/17 15:36 Quite down, despondent today. Will [facility]. 01/07/17 13:32 Better today. [facility]. 01/10/17 21:51 Objective improvement. [facility]. 01/11/17 16:43 Tolerating ECT well. Remains subjectively depressed, though objectively improving. [facility]. 01/12/17 15:33 Starting to see some subjective improvement. [facility]. Continue d/c planning. 01/13/17 16:18 Pt remains withdrawn, prostrate. This is largely due to his depression as friends and family all report that he is only like this when he is depressed. Will [facility] with ECT tomorrow. 01/14/17 09:21 Improving. [facility]. 01/17/17 14:35 Continued improvement. [facility]. 01/18/17 16:40 Continued gradual improvement. [facility]. Subjective: Pt seen, discussed with staff. Reports feeling "anxious and worried." This is mostly in regards to d/c planning. Pt's brother has offered to help. I reviewed the case with Dr. El who approves inpatient ECT through Tuesday. Objective: Vital Signs Temp Pulse Resp BP Pulse Ox 36.7 C 57 L 12 102/63 97 01/18/17 06:00 01/18/17 06:00 01/18/17 06:00 01/18/17 06:00 01/18/17 06:00 - Time Spent With Patient Time Spent With Patient: 25" ICD10 Worksheet Patient Problems: Problems Problem Status Onset Depression, major, severe recurrence Acute Severe major depression Acute
[2017-01-18] MEDS: QUEtiapine FUMARATE 50 MG TAB PO PRN (21:02)
[2017-01-19] MEDS ORDERED: ONDANSETRON DISINTEGRATING 4 MG TAB PO ONE (05:00)
[2017-01-19] MEDS ORDERED: NS 1,000 ML IV ONE (05:00)
[2017-01-19] MEDS ORDERED: LIDOCAINE 2% 5 ML SDV ID ONE (05:00)
[2017-01-19] MEDS ORDERED: CITRIC ACID/SODIUM CITRATE 30 ML UDCUP PO ONE (05:00)
[2017-01-19] MEDS ORDERED: THEOPHYLLINE ORAL SOLUTION 80 MG/15 ML UDCUP PO ONE (05:00)
[2017-01-19] MEDS ORDERED: fentaNYL 100 MCG/2 ML INJ ONE (05:10)
[2017-01-19] MEDS ORDERED: MIDAZOLAM 2 MG/2 ML VIAL ONE (05:10)
[2017-01-19] MEDS ORDERED: ONDANSETRON 4 MG/2 ML VIAL ONE (05:10)
[2017-01-19] MEDS ORDERED: ETOMIDATE 20 MG/10 ML VIAL ONE (05:11)
[2017-01-19] MEDS ORDERED: GLYCOPYRROLATE 0.2 MG/1 ML VIAL ONE (05:11)
[2017-01-19] MEDS ORDERED: PROPOFOL 200 MG/20 ML VIAL ONE (05:11)
[2017-01-19] MEDS ORDERED: ROCURONIUM 50 MG/5 ML VIAL ONE (05:11)
[2017-01-19] MEDS ORDERED: SUCCINYLCHOLINE CHLORIDE 200 MG/10 ML VIAL ONE (05:12)
[2017-01-19] MEDS ORDERED: ONDANSETRON DISINTEGRATING 4 MG TAB ONE (06:20)
[2017-01-19] MEDS ORDERED: CITRIC ACID/SODIUM CITRATE 30 ML UDCUP ONE (06:20)
[2017-01-19] MEDS: SERTRALINE HCL 100 MG TAB PO SCH (08:45)
[2017-01-19] MEDS: CHOLECALCIFEROL VIT D3 2,000 UNITS TAB/CAP PO SCH (08:45)
[2017-01-19] MEDS: buPROPion XL 150 MG TAB PO SCH (08:45)
--- NOTE | 2017-01-19 13:57 | SOAPPROG ---
[facility] Progress Note Assessment/Plan: Assessment: Plan: 01/03/17 14:27 REmains quite depressed. Have begun acute course ECT. [facility]. 01/04/17 14:02 Tolerating ECT well. [facility]. 01/05/17 11:01 Early improvement. [facility]. 01/06/17 15:36 Quite down, despondent today. Will [facility]. 01/07/17 13:32 Better today. [facility]. 01/10/17 21:51 Objective improvement. [facility]. 01/11/17 16:43 Tolerating ECT well. Remains subjectively depressed, though objectively improving. [facility]. 01/12/17 15:33 Starting to see some subjective improvement. [facility]CM. Continue d/c planning. 01/13/17 16:18 Pt remains withdrawn, prostrate. This is largely due to his depression as friends and family all report that he is only like this when he is depressed. Will [facility] with ECT tomorrow. 01/14/17 09:21 Improving. [facility]. 01/17/17 14:35 Continued improvement. [facility]. 01/18/17 16:40 Continued gradual improvement. [facility]. 01/19/17 13:56 Doing well. Will complete acute course on 01/21/17. CCM. COntinue d/c planning. Subjective: Pt seen, discussed with staff. Reports feeling "a little better" today. Encourage by brother visiting and possible HHN. Underwent ECT this morning without complication. Cognition remains stable though more forgetful on treatment days since changing to bilateral. Objective: Vital Signs Temp Pulse Resp BP Pulse Ox 37.1 C 68 16 123/80 H 92 01/19/17 07:10 01/19/17 07:10 01/19/17 07:10 01/19/17 07:10 01/19/17 07:10 MSE: Calm, coop. Affect is blunted, stable, approp. Mood is "better." TP linear. TC reveals no psychosis. Denies SI. - Time Spent With Patient Time Spent With Patient: 35" ICD10 Worksheet Patient Problems: Problems Problem Status Onset Depression, major, severe recurrence Acute Severe major depression Acute
[2017-01-19] MEDS: clonazePAM 0.5 MG TAB PO PRN (22:06)
[2017-01-19] MEDS: QUEtiapine FUMARATE 50 MG TAB PO PRN (22:06)
[2017-01-20] MEDS: CHOLECALCIFEROL VIT D3 2,000 UNITS TAB/CAP PO SCH (08:22)
[2017-01-20] MEDS: SERTRALINE HCL 100 MG TAB PO SCH (08:23)
[2017-01-20] MEDS: buPROPion XL 150 MG TAB PO SCH (08:23)
--- NOTE | 2017-01-20 15:47 | SOAPPROG ---
[facility] Progress Note Assessment/Plan: Assessment: Plan: 01/03/17 14:27 REmains quite depressed. Have begun acute course ECT. [facility]. 01/04/17 14:02 Tolerating ECT well. [facility]. 01/05/17 11:01 Early improvement. [facility]. 01/06/17 15:36 Quite down, despondent today. Will [facility]. 01/07/17 13:32 Better today. [facility]. 01/10/17 21:51 Objective improvement. [facility]. 01/11/17 16:43 Tolerating ECT well. Remains subjectively depressed, though objectively improving. [facility]. 01/12/17 15:33 Starting to see some subjective improvement. [facility]CM. Continue d/c planning. 01/13/17 16:18 Pt remains withdrawn, prostrate. This is largely due to his depression as friends and family all report that he is only like this when he is depressed. Will [facility] with ECT tomorrow. 01/14/17 09:21 Improving. [facility]CM. 01/17/17 14:35 Continued improvement. [facility]. 01/18/17 16:40 Continued gradual improvement. [facility]. 01/19/17 13:56 Doing well. Will complete acute course on 01/21/17. CCM. COntinue d/c planning. 01/20/17 15:47 Continued improvement. [facility]. Subjective: Pt seen, discussed with staff. Reports feeling "better" today. Reports some anxiety related to d/c, but looking forward to going home. Appears calmer and brighter to staff. Sleeping well. Objective: Vital Signs Temp Pulse Resp BP Pulse Ox 36.8 C 60 14 122/77 H 91 L 01/20/17 06:40 01/20/17 06:40 01/20/17 06:40 01/20/17 06:40 01/20/17 06:40 MSE: Calm, coop. Affect is generally euthymic, less constricted. Mood is "better." TP linear. TC reveals no psychosis. Denies SI. - Time Spent With Patient Time Spent With Patient: 25" ICD10 Worksheet Patient Problems: Problems Problem Status Onset Depression, major, severe recurrence Acute Severe major depression Acute
[2017-01-20] MEDS: QUEtiapine FUMARATE 50 MG TAB PO PRN (20:55)
[2017-01-21] MEDS ORDERED: THEOPHYLLINE ORAL SOLUTION 80 MG/15 ML UDCUP PO ONE (04:00)
[2017-01-21] MEDS ORDERED: CITRIC ACID/SODIUM CITRATE 30 ML UDCUP PO ONE (04:00)
[2017-01-21] MEDS ORDERED: ONDANSETRON DISINTEGRATING 4 MG TAB PO ONE (04:00)
[2017-01-21] MEDS ORDERED: NS 1,000 ML IV ONE (04:00)
[2017-01-21] MEDS ORDERED: LIDOCAINE 2% 5 ML SDV ID ONE (04:00)
[2017-01-21] MEDS ORDERED: GLYCOPYRROLATE 0.2 MG/1 ML VIAL ONE (06:08)
[2017-01-21] MEDS ORDERED: MIDAZOLAM 2 MG/2 ML VIAL ONE (06:08)
[2017-01-21] MEDS ORDERED: fentaNYL 100 MCG/2 ML INJ ONE (06:08)
[2017-01-21] MEDS ORDERED: ONDANSETRON 4 MG/2 ML VIAL ONE (06:08)
[2017-01-21] MEDS ORDERED: PROPOFOL 200 MG/20 ML VIAL ONE (06:09)
[2017-01-21] MEDS ORDERED: LIDOCAINE 2% 5 ML SDV ONE (06:09)
[2017-01-21] MEDS ORDERED: ETOMIDATE 20 MG/10 ML VIAL ONE (06:09)
[2017-01-21] MEDS ORDERED: ROCURONIUM 50 MG/5 ML VIAL ONE (06:10)
[2017-01-21] MEDS ORDERED: SUCCINYLCHOLINE CHLORIDE 200 MG/10 ML VIAL ONE (06:10)
[2017-01-21] MEDS ORDERED: ONDANSETRON DISINTEGRATING 4 MG TAB ONE (08:09)
[2017-01-21] MEDS ORDERED: CITRIC ACID/SODIUM CITRATE 30 ML UDCUP ONE (08:10)
[2017-01-21] MEDS: CHOLECALCIFEROL VIT D3 2,000 UNITS TAB/CAP PO SCH (10:27)
[2017-01-21] MEDS: buPROPion XL 150 MG TAB PO SCH (10:27)
[2017-01-21] MEDS: SERTRALINE HCL 100 MG TAB PO SCH (10:27)
[2017-01-21 11:58] VITALS: BP 120/80; PULSE 72; RESP 14; TEMP 98.3; O2SAT 95
--- NOTE | 2017-01-21 15:33 | BDS ---
[f rep st] BEHAVIORAL HEALTH DISCHARGE SUMMARY REASON FOR ADMISSION: Patient is a 56-year-old male with a history of bipolar disorder wit h predominant treatment-resistant depression. He presented to the emergency department, as we were p reparing to start outpatient ECT, due to a relatively precipitous decompensation and inability to car e for himself. He was admitted to the hospital, and we began ECT on the following Tuesday. A full de scription of the events preceding admission can be found in his admission history per Dr. Jeffy Garcia , dated 01/01/2017. ADMITTING DIAGNOSES: Per Dr. Garcia were major depressive disorder (recurrent, severe), marital confli ct, potential custody problems, financial problems, chronic depression, and lack of treatment respons e, ADMISSION PHYSICAL EXAMINATION: Performed by Rocky Gibson MD; reveals no acute physical findings . ADMISSION LABORATORY: CBC is normal. Serum chemistries are normal. Urine drug screen was positive for benzodiazepines. HOSPITAL COURSE: Patient was admitted to behavioral health services inpatient unit on an M1 hold. Alpesh guadarrama was pleasant and cooperative, and participated actively in all evaluations. He was quite anxious a nd withdrawn, appearing at times to be even a bit histrionic. He was fixated on his social difficult ies and his inability to care for himself, and was in a very prostrate psychological stance. We prov ided supportive psychotherapy, and I provided personal reassurances that I believed that ECT would be effective for him. We had previously planned to start ECT as soon as it was approved, and this appr oval was obtained during his hospitalization. We began acute course right unilateral ECT on Tuesday A ugust 21. Patient then received 9 acute course (Tuesday/Tuesday/Tuesday) treatments ending on the da te of his discharge, 01/21/2017. He tolerated all these treatments well with some initial headache t hat resolved and then some amount of amnesia on the day of treatment that did not carry over through the next day. His mood gradually brightened, and his helplessness and hopelessness decreased. A big challenge during his hospitalization was helping him manage some of his psychosocial stressors. This is the main issue that had prevented him from seeking ECT treatment in the past year. It was also the thing he perseverated most negatively on over the past year and during the time just prior t o this hospitalization. 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 I red irected his thinking on a daily basis during his stay and attempted to get him to focus on his recove ry, rather than perseveratively worry about his stressors. There was minimal success at 1st with antoni schaefer, but he later did relax and was able to put things into context. Patient was able to contact a friend and his therapist, [facility]. He was able to get some billing done to take care of some acute financial issues such as pay ing his mortgage and was able to make contact with a brother, who flew in from out of state to be a s upport. These were all positive steps for him, and he gained some degree of self-confidence from antoni schaefer. Patient's hospitalization was otherwise uncomplicated. He participated actively in all therapies, to lerated his ECT treatments well, and suffered no significant negative side effects. CONDITION AT DISCHARGE: Stable. His affect was significantly brighter, less anxious, and his outloo k was positive. He was more hopeful and forward thinking, and his thoughts of suicide had resolved. DISCHARGE MEDICATIONS: Clonazepam 0.5 mg p.o. at bedtime as needed for sleep, [place] 5/325 one tab ev kimberly 4 hours as needed for headache post ECT, Seroquel 50 mg p.o. q.h.s. p.r.n. anxiety and sleep, bup ropion XL 150 mg p.o. daily, vitamin D3 2000 units daily, and Zoloft 100 mg p.o. daily. DISCHARGE DIAGNOSES: 1. Bipolar 1 disorder, most recent episode depressed, severe, with treatment resistant features. 2. Chronic illness. 3. Recurrent illness. 4. Occupational problems. 5. Financial problems. 6. Relationship problems. 7. Family problems. DISPOSITION: Patient left the hospital with his brother to return to his own home. His brother will be staying for the next week to be a support. FOLLOWUP: With ECT on the Tuesday following discharge (01/24/2017) and with his outpatient psychother apist as scheduled. LEGAL COURSE: Patient was converted to voluntary status with expiration of his M1 hold. /[id number]/MODL
[2017-01-24] MEDS ORDERED: fentaNYL 100 MCG/2 ML INJ ONE (05:18)
[2017-01-24] MEDS ORDERED: MIDAZOLAM 2 MG/2 ML VIAL ONE (05:18)
[2017-01-24] MEDS ORDERED: ROCURONIUM 50 MG/5 ML VIAL ONE (05:19)
[2017-01-24] MEDS ORDERED: GLYCOPYRROLATE 0.2 MG/1 ML VIAL ONE (05:19)
[2017-01-24] MEDS ORDERED: SUCCINYLCHOLINE CHLORIDE 200 MG/10 ML VIAL ONE (05:19)
[2017-01-24] MEDS ORDERED: PROPOFOL 200 MG/20 ML VIAL ONE (05:19)
[2017-01-24] MEDS ORDERED: ONDANSETRON 4 MG/2 ML VIAL ONE (05:19)
[2017-01-24] MEDS ORDERED: ETOMIDATE 20 MG/10 ML VIAL ONE (05:19)
== END 2017-01-21 15:45 | disposition home or self-care (01) | DRG 885 ==
LOC: BBEH 01-01 01:10
PROVIDERS: ADMIT Psychiatry & Neurology Psychiatry; ATTEND Psychiatry & Neurology Psychiatry
PROC: GZB4ZZZ Other Electroconvulsive Therapy (ICD-10-PCS; principal; 2017-01-03)
DX: F31.4 Bipolar disorder, current episode depressed, severe, without psychotic features (principal); Z63.0 Problems in relationship with spouse or partner
CPT/HCPCS: 80305; G0480; J0330; J2250; J2405; J2704; J3010

== ENCOUNTER → 2017-08-01 | Outpatient (CLI) | payer MEDICAID | LOC: FCPNEURO 23:45 | PROVIDERS: ATTEND Internal Medicine Sleep Medicine | DX: G47.33 Obstructive sleep apnea (adult) (pediatric) (principal) ==